=== PATIENT | female | born 1995 | race Caucasian/White ===

== ENCOUNTER 2023-02-24 11:35 | Outpatient (OUT) | payer OTHER, SELFPAY ==
[2023-02-24 12:47] LABS: Thyroid Stimulating Hormone 1.639 uIU/mL (0.358-3.740)
== END 2023-02-24 11:36 | disposition home or self-care (01) ==
PROVIDERS: PCP Family Medicine
DX: R53.83 Other fatigue (principal)
CPT/HCPCS: 36415; 82607; 84443

== ENCOUNTER 2023-05-04 19:15 | Outpatient (REF) | payer OTHER, SELFPAY | END 2023-05-04 19:16 | disposition home or self-care (01) | LOC: LAB 19:15 | PROVIDERS: PCP Family Medicine; Visit Provider Obstetrics & Gynecology | DX: R30.0 Dysuria (principal) | CPT/HCPCS: 87086; 87150; 87186 ==

== ENCOUNTER 2023-05-04 20:18 | Outpatient (REF) | payer OTHER, SELFPAY ==
[2023-05-10 07:08] LABS: Age Gdln ACOG Testing Note (.); IGP, rfx Aptima HPV ASCU Note (.)
== END 2023-05-04 20:19 | disposition home or self-care (01) ==
LOC: LAB 20:18
PROVIDERS: PCP Family Medicine; Visit Provider Physician Assistant
DX: Z01.419 Encounter for gynecological examination (general) (routine) without abnormal findings (principal); R30.0 Dysuria
CPT/HCPCS: 87086; 87150; 87186; G0145

== ENCOUNTER 2023-12-06 14:08 | Outpatient (OUT) | payer OTHER, SELFPAY | END 2023-12-06 14:09 | disposition home or self-care (01) | LOC: LAB 14:09 | PROVIDERS: PCP Family Medicine; Visit Provider Psychiatry & Neurology Psychiatry | DX: F98.8 Other specified behavioral and emotional disorders with onset usually occurring in childhood and adolescence (principal); Z79.899 Other long term (current) drug therapy | CPT/HCPCS: 36415; 80307 ==

== ENCOUNTER 2024-05-09 19:35 | Outpatient (REF) | payer OTHER, SELFPAY ==
--- OUTSIDE RECORDS SUMMARY | 2024-05-09 19:39 | XMS_ITS | CCD ---
Author Organization [facility] Care Team Providers Care Contracting Executive Name Role Phone DR SAVANNA SPEARS Primary Care Unavailable KARMANPREETK, DR MONTES Admitting Unavailable KARASIK, DR MONTES Attending Unavailable KARASIK, DR MONTES Consulting Unavailable MARKER, DR JOSE Consulting Unavailable AGUBOSIM, DUC Consulting Unavailable LONG, MINOR Consulting Unavailable AHDOOT, OPAL Consulting Unavailable DOYLE, DANYELL Consulting Unavailable TORO, EMMA Consulting Unavailable DENNIS, DR RICH Admitting Unavailable TORY, DR CORRALES Primary Care Unavailable DENNIS, DR RICH Attending Unavailable DENNIS, DR RICH Consulting Unavailable JAVAN BORGES Attending Unavailable JAVAN BORGES Consulting Unavailable TORY, DR CORRALES Primary Care Unavailable JAVAN BORGES Admitting Unavailable Dl Horton Attending Unavailab Dl Araiza Admitting Unavailab maryana ESPINOZA STAFF Primary Care Unavailable Allergies Allergy Classification Reported Allergen(s) Allergy Type Date of Onset Reaction(s) Facility (1 source) Amoxicillin Drug Allergy [facility] Repository Problems Active Problems Problem Classification Problem Date Documented Date Episodic/Chronic Abdominal pain (3 sources) Pelvic and perineal pain; Translations: [PELVIC AND PERINEAL PAIN] Onset: 03-11-2022 Episodic Anxiety disorders (1 source) Anxiety disorder, unspecified; Translations: [ANXIETY DISORDER UNSPECIFIED] Onset: 03-17-2022 Chronic Attention-deficit, conduct, and disruptive behavior disorders (1 source) Attention-deficit hyperactivity disorder, unspecified type; Translations: [ADHD UNSPECIFIED TYPE] Onset: 03-17-2022 Chronic Immunizations and screening for infectious disease (1 source) Encounter for screening for human papillomavirus (HPV); Translations: [ENC SCREENING HUMAN PAPILLOMAVIRUS] Onset: 05-05-2022 Episodic Mood disorders (1 source) Major depressive disorder, single episode, unspecified; Translations: [ZAKIA DEPRESS D/O SINGLE EPIS UNS] Onset: 03-17-2022 Chronic Other aftercare (1 source) Other long distance operator (current) drug therapy; Translations: [OTH MCFP CURRENT DRUG THERAPY] Onset: 03-17-2022 Episodic Ovarian cyst (1 source) Unspecified ovarian cyst, right side; Translations: [UNSPECIFIED OVARIAN CYST RIGHT SIDE] Onset: 03-17-2022 Episodic Unclassified (1 source) CONTACT W/AND (SUSP) EXPOS COVID-19; Translations: [CONTACT W/AND (SUSP) EXPOS COVID-19] Onset: 03-17-2022 Past or Other Problems Problem Classification Problem Date Documented Da te Episodic/Chronic Conditions associated with dizziness or vertigo (4 sources) Dizziness and giddiness; Translations: [DIZZINESS AND GIDDINESS] Onset: 01-07-2022 Episodic Results Test Name Value Interpretation Reference Range Facility PAP ACOG PANEL 2: 21 to 29on 05-11-2022 . . [facility] Comment on above: Performed By: #### B EDSON, TSH #### [facility] [address] [place] [address] Dr. Lizzy Catalan Age Gdln ACOG Testing 21-29 [facility] Comment on above: Performed By: #### B EDSON, TSH #### [facility] [address] [place] [address] Dr. Lizzy Catalan DIAGNOSIS: Comment [facility] Comment on above: Result Comment: NEGA TIVE FOR INTRAEPITHELIAL LESION OR MALIGNANCY. THIS SPECIMEN WAS RESCREENED PART OF OUR SOFTWARE INTEGRATOR PROGRAM. Performed By: #### B EDSON, TSH #### [facility] [address] [place] [address] Dr. Lizzy Catalan Methodology: Comment [facility] Comment on above: Result Comment: This liquid based ThinPrep(R) pap test was screened with the use of an image guided system. Performed By: #### B EDSON, TSH #### [facility] [address] [place] [address] Dr. Lizzy Catalan Note: Comment [facility] Comment on above: Result Comment: The Pap smear is a screening test designed to aid in the detection of premalignant and malignant conditions of the uterine cervix. It is not a diagnostic procedure and should not be used as the sole means of detecting cervical cancer. Both false-positive and false-negative reports do occur. . Performed By: #### B MP, TSH #### [facility] [address] [place] [address] Dr. Lizzy Catalan Performed by: Comment Normal [facility] Comment on above: Result Comment: Tootie Carpenter, Criminal Legal Assistant (ASCP) Performed By: #### B MP, TSH #### [facility] [address] [place] [address] Dr. Lizzy Catalan QC reviewed by: Comment Normal [facility] Comment on above: Result Comment: Colton Snowden, Criminal Legal Assistant Performed By: #### B MP, TSH #### [facility] [address] [place] [address] Dr. Lizzy Catalan Reflex Criteria: Comment Normal [facility] Comment on above: Result Comment: The HPV DNA reflex criteria were not met with this specimen result therefore, no HPV testing was performed. . Performed By: #### B MP, TSH #### [facility] [address] [place] [address] Dr. Lizzy Catalan Specimen adequacy: Comment Normal [facility] Comment on above: Result Comment: Sati sfactory for evaluation. Endocervical and/or squamous metaplastic cells (endocervical component) are present. Performed By: #### B MP, TSH #### [facility] [address] [place] [address] Dr. Lizzy Catalan CBC AUTO DIFFon 03-12-2022 BASO # 0.0 103/ul Normal 0.0-0.1 [facility] Comment on above: Performed By: #### C BC #### [facility] [address] [place] [address] Dr. Lizzy Catalan Basophils/100 WBC (Bld) 0.3 % Normal 0.2-2.0 [facility] Comment on above: Performed By: #### C BC #### [facility] [address] [place] [address] Dr. Lizzy Catalan EO # 0.0 103/ul Normal 0.0-0.7 [facility] Comment on above: Performed By: #### C BC #### [facility] [address] [place] [address] Dr. Lizzy Catalan Eosinophils/100 WBC (Bld) 0.1 % Critically low 0.9-7.0 [facility] Comment on above: Performed By: #### C BC #### [facility] [address] [place] [address] Dr. Lizzy Catalan Erythrocyte distribution width (RBC) [Ratio] 12.8 % Normal 11.0-15.0 [facility] Comment on above: Performed By: #### C BC #### [facility] [address] [place] [address] Dr. Lizzy Catalan Hematocrit (Bld) [Volume fraction] 26.1 % Critically low 36.0-48.0 [facility] Comment on above: Performed By: #### C BC #### [facility] [address] [place] [address] Dr. Lizzy Catalan Hemoglobin (Bld) [Mass/Vol] 8.4 g/dL Critically low 12.0-16.0 [facility] Comment on above: Performed By: #### C BC #### [facility] [address] [place] [address] Dr. Lizzy Catalan IG # 0.05 10e3/ul Critically high 0.00-0.03 [facility] Comment on above: Performed By: #### C BC #### [facility] [address] [place] [address] Dr. Lizzy Catalan IG % 0.4 % Normal 0.0-0.5 [facility] Comment on above: Performed By: #### C BC #### [facility] [address] [place] [address] Dr. Lizzy Catalan LYMPH # 1.5 103/ul Normal 1.2-3.8 [facility] Comment on above: Performed By: #### C BC #### [facility] [address] [place] [address] Dr. Lizzy Catalan Lymphocytes/100 WBC (Bld) 11.4 % Critically low 20.5-60.0 [facility] Comment on above: Performed By: #### C BC #### [facility] [address] [place] [address] Dr. Lizzy Catalan MANUAL DIFF REQ NO Normal [facility] Comment on above: Performed By: #### C BC #### [facility] [address] [place] [address] Dr. Lizzy Catalan MCH (RBC) [Entitic mass] 28.7 pg Normal 26.7-34.0 [facility] Comment on above: Performed By: #### C BC #### [facility] [address] [place] [address] Dr. Lizzy Catalan MCHC (RBC) [Mass/Vol] 32.2 g/dL Normal 29.9-35.2 [facility] Comment on above: Performed By: #### C BC #### [facility] [address] [place] [address] Dr. Lizzy Catalan MCV (RBC) [Entitic vol] 89.1 fL Normal 81.0-99.0 [facility] Comment on above: Performed By: #### C BC #### [facility] [address] [place] [address] Dr. Lizzy Catalan MONO # 1.2 103/ul Critically high 0.3-0.8 [facility] Comment on above: Performed By: #### C BC #### [facility] [address] [place] [address] Dr. Lizzy Catalan Monocytes/100 WBC (Bld) 9.3 % Normal 1.7-12.0 [facility] Comment on above: Performed By: #### C BC #### [facility] [address] [place] [address] Dr. Lizzy Catalan NEUT # 10.1 103/ul Critically high 1.4-6.5 [facility] Comment on above: Performed By: #### C BC #### [facility] [address] [place] [address] Dr. Lizzy Catalan Neutrophils/100 WBC (Bld) 78.5 % Critically high 43.0-75.0 [facility] Comment on above: Performed By: #### C BC #### [facility] [address] [place] [address] Dr. Lizzy Catalan Platelet mean volume (Bld) [Entitic vol] 10.0 fL Normal 9.5-13.5 [facility] Comment on above: Performed By: #### C BC #### [facility] [address] [address] [address] Lizzy Catalan PLT 333 103/ul Normal 150-450 [facility] Comment on above: Performed By: #### C BC #### [facility] [address] [place] [address] Dr. Lizzy Catalan RBC 2.93 106/ul Critically low 4.20-5.40 [facility] Comment on above: Performed By: #### C BC #### [facility] [address] [place] [address] Dr. Lizzy Catalan WBC 12.9 103/ul Critically high 4.0-11.0 [facility] Comment on above: Performed By: #### C BC #### [facility] [address] [place] [address] Dr. Lizzy Catalan CBC AUTO DIFFon 03-11-2022 BASO # 0.0 103/ul Normal 0.0-0.1 [facility] Comment on above: Performed By: #### C BC #### [facility] [address] [place] [address] Dr. Lizzy Catalan Basophils/100 WBC (Bld) 0.2 % Normal 0.2-2.0 [facility] Comment on above: Performed By: #### C BC #### [facility] [address] [place] [address] Dr. Lizzy Catalan EO # 0.0 103/ul Normal 0.0-0.7 [facility] Comment on above: Performed By: #### C BC #### [facility] [address] [place] [address] Dr. Lizzy Catalan Eosinophils/100 WBC (Bld) 0.1 % Critically low 0.9-7.0 [facility] Comment on above: Performed By: #### C BC #### [facility] [address] [place] [address] Dr. Lizzy Catalan Erythrocyte distribution width (RBC) [Ratio] 12.8 % Normal 11.0-15.0 [facility] Comment on above: Performed By: #### C BC #### [facility] [address] [place] [address] Dr. Lizzy Catalan Hematocrit (Bld) [Volume fraction] 27.3 % Critically low 36.0-48.0 [facility] Comment on above: Performed By: #### C BC #### [facility] [address] [place] [address] Dr. Lizzy Catalan Hemoglobin (Bld) [Mass/Vol] 9.2 g/dL Critically low 12.0-16.0 [facility] Comment on above: Performed By: #### C BC #### [facility] [address] [place] [address] Dr. Lizzy Catalan IG # 0.05 10e3/ul Critically high 0.00-0.03 [facility] Comment on above: Performed By: #### C BC #### [facility] [address] [place] [address] Dr. Lizzy Catalan IG % 0.4 % Normal 0.0-0.5 [facility] Comment on above: Performed By: #### C BC #### [facility] [address] [place] [address] Dr. Lizzy Catalan LYMPH # 0.5 103/ul Critically low 1.2-3.8 [facility] Comment on above: Performed By: #### C BC #### [facility] [address] [place] [address] Dr. Lizzy Catalan Lymphocytes/100 WBC (Bld) 4.2 % Critically low 20.5-60.0 [facility] Comment on above: Performed By: #### C BC #### [facility] [address] [place] [address] Dr. Lizzy Catalan MANUAL DIFF REQ NO Normal [facility] Comment on above: Performed By: #### C BC #### [facility] [address] [place] [address] Dr. Lizzy Catalan MCH (RBC) [Entitic mass] 29.4 pg Normal 26.7-34.0 [facility] Comment on above: Performed By: #### C BC #### [facility] [address] [place] [address] Dr. Lizzy Catalan MCHC (RBC) [Mass/Vol] 33.7 g/dL Normal 29.9-35.2 [facility] Comment on above: Performed By: #### C BC #### [facility] [address] [place] [address] Dr. Lizzy Catalan MCV (RBC) [Entitic vol] 87.2 fL Normal 81.0-99.0 [facility] Comment on above: Performed By: #### C BC #### [facility] [address] [place] [address] Dr. Lizzy Catalan MONO # 0.3 103/ul Normal 0.3-0.8 [facility] Comment on above: Performed By: #### C BC #### [facility] [address] [place] [address] Dr. Lizzy Catalan Monocytes/100 WBC (Bld) 2.5 % Normal 1.7-12.0 [facility] Comment on above: Performed By: #### C BC #### [facility] [address] [place] [address] Dr. Lizzy Catalan NEUT # 11.5 103/ul Critically high 1.4-6.5 [facility] Comment on above: Performed By: #### C BC #### [facility] [address] [place] [address] Dr. Lizzy Catalan Neutrophils/100 WBC (Bld) 92.6 % Critically high 43.0-75.0 [facility] Comment on above: Performed By: #### C BC #### [facility] [address] [place] [address] Dr. Lizzy Catalan Platelet mean volume (Bld) [Entitic vol] 10.0 fL Normal 9.5-13.5 [facility] Comment on above: Performed By: #### C BC #### [facility] [address] [address] [address] Lizzy Catalan PLT 329 103/ul Normal 150-450 [facility] Comment on above: Performed By: #### C BC #### [facility] [address] [address] [address] Lizzy Catalan RBC 3.13 106/ul Critically low 4.20-5.40 [facility] Comment on above: Performed By: #### C BC #### [facility] [address] [address] [address] Lizzy Catalan WBC 12.4 103/ul Critically high 4.0-11.0 [facility] Comment on above: Performed By: #### C BC #### [facility] [address] [place] [address] Dr. Lizzy Catalan BASO # 0.1 103/ul Normal 0.0-0.1 [facility] Comment on above: Performed By: #### C BC #### [facility] [address] [place] [address] Dr. Lizzy Catalan Basophils/100 WBC (Bld) 0.7 % Normal 0.2-2.0 [facility] Comment on above: Performed By: #### C BC #### [facility] [address] [place] [address] Dr. Lizzy Catalan EO # 0.0 103/ul Normal 0.0-0.7 [facility] Comment on above: Performed By: #### C BC #### [facility] [address] [place] [address] Dr. Lizzy Catalan Eosinophils/100 WBC (Bld) 0.3 % Critically low 0.9-7.0 [facility] Comment on above: Performed By: #### C BC #### [facility] [address] [place] [address] Dr. Lizzy Catalan Erythrocyte distribution width (RBC) [Ratio] 12.5 % Normal 11.0-15.0 [facility] Comment on above: Performed By: #### C BC #### [facility] [address] [place] [address] Dr. Lizzy Catalan Hematocrit (Bld) [Volume fraction] 26.7 % Critically low 36.0-48.0 [facility] Comment on above: Performed By: #### C BC #### [facility] [address] [place] [address] Dr. Lizzy Catalan Hemoglobin (Bld) [Mass/Vol] 8.9 g/dL Critically low 12.0-16.0 [facility] Comment on above: Performed By: #### C BC #### [facility] [address] [place] [address] Dr. Lizzy Catalan IG # 0.05 10e3/ul Critically high 0.00-0.03 [facility] Comment on above: Performed By: #### C BC #### [facility] [address] [place] [address] Dr. Lizzy Catalan IG % 0.5 % Normal 0.0-0.5 [facility] Comment on above: Performed By: #### C BC #### [facility] [address] [place] [address] Dr. Lizzy Catalan LYMPH # 2.0 103/ul Normal 1.2-3.8 [facility] Comment on above: Performed By: #### C BC #### [facility] [address] [place] [address] Dr. Lizzy Catalan Lymphocytes/100 WBC (Bld) 19.2 % Critically low 20.5-60.0 [facility] Comment on above: Performed By: #### C BC #### [facility] [address] [place] [address] Dr. Lizzy Catalan MANUAL DIFF REQ NO Normal [facility] Comment on above: Performed By: #### C BC #### [facility] [address] [place] [address] Dr. Lizzy Catalan MCH (RBC) [Entitic mass] 28.7 pg Normal 26.7-34.0 [facility] Comment on above: Performed By: #### C BC #### [facility] [address] [place] [address] Dr. Lizzy Catalan MCHC (RBC) [Mass/Vol] 33.3 g/dL Normal 29.9-35.2 [facility] Comment on above: Performed By: #### C BC #### [facility] [address] [place] [address] Dr. Lizzy Catalan MCV (RBC) [Entitic vol] 86.1 fL Normal 81.0-99.0 [facility] Comment on above: Performed By: #### C BC #### [facility] [address] [place] [address] Dr. Lizzy Catalan MONO # 1.0 103/ul Critically high 0.3-0.8 [facility] Comment on above: Performed By: #### C BC #### [facility] [address] [place] [address] Dr. Lizzy Catalan Monocytes/100 WBC (Bld) 9.6 % Normal 1.7-12.0 [facility] Comment on above: Performed By: #### C BC #### [facility] [address] [place] [address] Dr. Lizzy Catalan NEUT # 7.4 103/ul Critically high 1.4-6.5 [facility] Comment on above: Performed By: #### C BC #### [facility] [address] [place] [address] Dr. Lizzy Catalan Neutrophils/100 WBC (Bld) 69.7 % Normal 43.0-75.0 [facility] Comment on above: Performed By: #### C BC #### [facility] [address] [place] [address] Dr. Lizzy Catalan Platelet mean volume (Bld) [Entitic vol] 9.8 fL Normal 9.5-13.5 [facility] Comment on above: Performed By: #### C BC #### [facility] [address] [place] [address] Dr. Lizzy Catalan PLT 308 103/ul Normal 150-450 [facility] Comment on above: Performed By: #### C BC #### [facility] [address] [place] [address] Dr. Lizzy Catalan RBC 3.10 106/ul Critically low 4.20-5.40 [facility] Comment on above: Performed By: #### C BC #### [facility] [address] [place], [place] [address] Dr. Lizzy Catalan WBC 10.6 103/ul Normal 4.0-11.0 [facility] Comment on above: Performed By: #### C BC #### [facility] [address] [place], [place] [address] ABD/PELV W CONon 03-11-20 CT ABD/PELV W CON EXAMINATION: CT ABD/PELV W CON HISTORY: GENERALIZED ABDOMINAL PAIN COMPARISON: Pelvic ultrasound dated 03/10/2022 TECHNIQUE: CT of the abdomen and pelvis with intravenous contrast Dose reduction techniques were achieved by using automated exposure control and/or adjustment of mA and/or kV according to patient size and/or use of iterative reconstruction technique. FINDINGS: TUBES AND IMPLANTS: None. LOWER CHEST: Unremarkable ABDOMEN and PELVIS ABDOMINAL WALL AND SOFT TISSUES: Unremarkable. BONES: Unremarkable ARTERIES: Unremarkable. VEINS: Unremarkable. LYMPH NODES: Unremarkable. PERITONEUM/ RETROPERITONEUM: Small to moderate hemoperitoneum. There is a large hemorrhagic focus seen within the pelvis likely associated with the left ovary measuring 6.5 by 8.4 by 8 centimeters. Additional round left adnexal focus measuring 1.8 centimeters may represent source of bleeding. Additional enlargement of the right ovary with complex cystic lesion which also demonstrates areas of hemorrhage. BOWEL: No obstruction APPENDIX: Unremarkable LIVER: Visualized portions are unremarkable GALLBLADDER: Unremarkable. BILE DUCTS: Not dilated SPLEEN: Unremarkable. PANCREAS: Unremarkable. ADRENALS: Unremarkable. KIDNEYS/ URETERS: Tiny bilateral cysts REPRODUCTIVE ORGANS: Uterus appears unremarkable. URINARY BLADDER: Unremarkable. IMPRESSION: 1. Small to moderate hemoperitoneum. 2. There is a large hemorrhagic focus seen within the pelvis likely associated with the left ovary measuring 6.5 by 8.4 by 8 centimeters. Additional round left adnexal focus measuring 1.8 centimeters may represent source of bleeding. Additional enlargement of the right ovary with complex cystic lesion which also demonstrates areas of hemorrhage. This may represent a ruptured corpus luteum cyst or hemorrhagic cyst. Left ovarian torsion is a secondary consideration. At time of dictation clinical operations staff was directly to relay the above findings to the ordering clinician. Electronically authenticated by: EMMA TORO Date: 2022-03-11 00:41 Normal [facility] Covid-19 PCR (CVDTB)on SARS-CoV-2 (COVID-19) RNA LEONIDES+probe Ql (Unsp spec) Not detected Normal NOT DETECTED [facility] Comment on above: Result Comment: When diagnostic testing is negative, the possibility of a false negative should be considered in the context of a patient's recent exposures and the presence of clinical signs and symptoms consistent with SARS-CoV-2. This test is not yet approved or cleared by the [place] FDA. When there are no FDA-approved or cleared tests available, and other criteria are met, FDA can make tests available under an emergency access mechanism called an Emergency Use Authorization (EUA). The EUA for this test is supported by the [place] of Health and Human Service's declaration that circumstances exist to justify the emergency use of in vitro diagnostics for the detection and/or diagnosis of the virus that causes COVID-19. This EUA will remain in effect for the duration of the COVID-19 declaration justifying emergency of IVDs, unless it is terminated or revoked by the FDA (after which the test may no longer be used). Performed By: #### B MP, TSH #### [facility] [address] [place] [address] Dr. Lizzy Catalan ER URINE PROFILEon 2 Bilirubin Ql (U) SMALL Abnormal NEGATIVE [facility] Comment on above: Performed By: #### U MICRO, ERUR, PREGU #### [facility] [address] [place] [address] Dr. Lizzy Catalan Clarity (U) CLEAR Normal CLEAR [facility] Comment on above: Performed By: #### U MICRO, ERUR, PREGU #### [facility] [address] [place] [address] Dr. Lizzy Catalan Color (U) DK. YELLOW Normal YELLOW [facility] Comment on above: Performed By: #### U MICRO, ERUR, PREGU #### [facility] [address] [place] [address] Dr. Lizzy Catalan ERUAHD A micrscopic examination will be performed if indicated. Normal [facility] Comment on above: Performed By: #### U MICRO, ERUR, PREGU #### [facility] [address] [address] [address] Lizzy Catalan Glucose Ql (U) Negative Normal NEGATIVE The [facility] Comment on above: Performed By: #### U MICRO, ERUR, PREGU #### [facility] [address] [address] [address] Lizzy Catalan Hemoglobin Ql (U) MODERATE Abnormal NEGATIVE [facility] Comment on above: Performed By: #### U MICRO, ERUR, PREGU #### [facility] [address] [address] [address] Lizzy Catalan Ketones Ql (U) Negative Normal NEGATIVE The [facility] Comment on above: Performed By: #### U MICRO, ERUR, PREGU #### [facility] [address] [address] [address] Lizzy Catalan LEUKOCYTES Negative Normal NEGATIVE [facility] Comment on above: Performed By: #### U MICRO, ERUR, PREGU #### [facility] [address] [address] [address] Lizzy Catalan Nitrite Ql (U) Negative Normal NEGATIVE [facility] Comment on above: Performed By: #### U MICRO, ERUR, PREGU #### [facility] [address] [address] [address] Lizzy Catalan pH (U) 5.0 [pH] Normal 5-9 [facility] Comment on above: Performed By: #### U MICRO, ERUR, PREGU #### [facility] [address] [address] [address] Lizzy Catalan SPEC GRAVITY >=1.030 Abnormal 1.005-<=1.025 [facility] Comment on above: Performed By: #### U MICRO, ERUR, PREGU #### [facility] [address] [address] [address] Lizzy Catalan UA PROTEIN TRACE Normal NEGATIVE/ TRACE [facility] Comment on above: Performed By: #### U MICRO, ERUR, PREGU #### [facility] [address] [place] [address] Dr. Lizzy Catalan UR MICRO IND INDICATED Normal [facility] Comment on above: Performed By: #### U MICRO, ERUR, PREGU #### [facility] [address] [place] [address] Dr. Lizzy Catalan Urobilinogen Qn (U) 0.2 {David'U}/dL Normal 0.2 - 1.0 [facility] Comment on above: Performed By: #### U MICRO, ERUR, PREGU #### [facility] [address] [place] [address] Dr. Lizzy Catalan URon 03-11-2022 , QUAL Negative Normal NEGATIVE [facility] Comment on above: Performed By: #### U MICRO, ERUR, PREGU #### [facility] [address] [place] [address] Dr. Lizzy Catalan URINE MICROSCOPIC ONLYon BACTERIA TRACE Abnormal NONE SEEN [facility] Comment on above: Performed By: #### B MP, TSH #### [facility] [address] [place] [address] Dr. Lizzy Catalan Bacteria identified Cx Nom (U) NOT INDICATED Normal [facility] Comment on above: Performed By: #### B MP, TSH #### [facility] [address] [place] [address] Dr. Lizzy Catalan CAST NONE SEEN Normal NONE SEEN [facility] Comment on above: Performed By: #### B MP, TSH #### [facility] [address] [place] [address] Dr. Lizzy Catalan Crystals LM Nom (Urine sed) NONE SEEN Normal NONE SEEN [facility] Comment on above: Performed By: #### B MP, TSH #### [facility] [address] [place] [address] Dr. Lizzy Catalan Epithelial cells LM Ql (Urine sed) FEW Abnormal NONE SEEN /RARE [facility] Comment on above: Performed By: #### B MP, TSH #### [facility] [address] [place] [address] Dr. Lizzy Catalan MUCOUS NONE SEEN Normal NONE SEEN [facility] Comment on above: Performed By: #### B MP, TSH #### [facility] [address] [place], [place] [address] Dr. Lizzy Catalan RBC 5-10 Abnormal 0-2 [facility] Comment on above: Performed By: #### B MP, TSH #### [facility] [address] [place], [place] [address] Dr. Lizzy Catalan WBC 2-5 Abnormal NONE SEEN [facility] Comment on above: Performed By: #### B MP, TSH #### [facility] [address] [place], [place] [address] Dr. Lizzy Catalan US PELVISon 03-11-2022 US PELVIS EXAM: US PELVIS REASON FOR EXAM: Female, 26 years, Torsion of ovary. LMP: 02/24/2022 TECHNIQUE: A transabdominal pelvic ultrasound was performed. The patient refused transvaginal scanning. The study is limited. The bladder was empty at the time of scanning. Both intravenous and oral fluids were given for one hour, without significant bladder filling. COMPARISON: None. FINDINGS: The uterus measures 7 x 4.5 x 3.6 cm. The uterus appears small for patient age. The endometrial stripe measures 3 mm. The cervix is normal. Right ovary: The right ovary measures 6.6 x 8.3 x 6.7 cm. cm. There is a complex cystic lesion within the right ovary, which measures approximately 5.6 x 4.2 x 5 cm. There is some vascularity documented in the periphery of the right ovary. Left ovary: The left ovary was not visualized. The bladder is empty at the time of scanning. There is no free fluid in the cul de sac. IMPRESSION: The study is limited. Despite both oral and intravenous fluids, the bladder was not distended for the transabdominal exam. The patient refused transvaginal scanning. The uterus appears small for patient age. Complex cystic structure in the right adnexa, suggesting a hemorrhagic right ovarian cyst. This patient may benefit from repeat pelvic sonography in the morning, with a full urinary bladder. Transvaginal scanning would also be very beneficial. 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 Electronically authenticated by: DANYELL KWON Date: 2022-03-10 22:59 Normal [facility] XR ABD FLAT UP_PA Magdaleno 03-11 XR ABD FLAT UP_PA CH EXAM: XR ABD FLAT UP_PA CH HISTORY: Constipation COMPARISON: None. TECHNIQUE: Frontal view of the chest as well as upright and supine views of the abdomen FINDINGS: The heart size is normal. No dense focal consolidation, pneumothorax or pleural effusion is seen. Nonspecific bowel gas pattern is seen. No air-filled distended loops of bowel is seen to suggest bowel obstruction. Air-fluid levels are seen within the ascending colon, suggestive of diarrheal state. Large volume of stool is seen in the colon. No gross pneumoperitoneum is seen. No pathologic calcification is seen. The visualized osseous structures appear unremarkable. IMPRESSION: Large volume of stool is seen in the colon. Air-fluid levels are seen in the ascending colon, suggestive of diarrheal state. Electronically authenticated by: OPAL DELA CRUZ Date: 2022-03-10 23:09 Normal [facility] CBC AUTO DIFFon 03-10-2022 BASO # 0.1 103/ul Normal 0.0-0.1 [facility] Comment on above: Performed By: #### B EDSON, TSH #### [facility] [address] [address] [address] Lizzy Catalan Basophils/100 WBC (Bld) 0.9 % Normal 0.2-2.0 [facility] Comment on above: Performed By: #### B EDSON, TSH #### [facility] [address] [address] [address] Lizzy Catalan EO # 0.1 103/ul Normal 0.0-0.7 [facility] Comment on above: Performed By: #### B EDSON, TSH #### [facility] [address] [address] [address] Lizzy Catalan Eosinophils/100 WBC (Bld) 1.1 % Normal 0.9-7.0 [facility] Comment on above: Performed By: #### B EDSON, TSH #### [facility] [address] [place] [address] Dr. Lizzy Catalan Erythrocyte distribution width (RBC) [Ratio] 12.4 % Normal 11.0-15.0 [facility] Comment on above: Performed By: #### B MP, TSH #### [facility] [address] [place] [address] Dr. Lizzy Catalan Hematocrit (Bld) [Volume fraction] 34.1 % Critically low 36.0-48.0 [facility] Comment on above: Performed By: #### B MP, TSH #### [facility] [address] [place] [address] Dr. Lizzy Catlaan Hemoglobin (Bld) [Mass/Vol] 11.5 g/dL Critically low 12.0-16.0 [facility] Comment on above: Performed By: #### B MP, TSH #### [facility] [address] [place] [address] Dr. Lizzy Catalan IG # 0.02 10e3/ul Normal 0.00-0.03 [facility] Comment on above: Performed By: #### B MP, TSH #### [facility] [address] [place] [address] Dr. Lizzy Catalan IG % 0.2 % Normal 0.0-0.5 [facility] Comment on above: Performed By: #### B MP, TSH #### [facility] [address] [place] [address] Dr. Lizzy Catalan LYMPH # 3.4 103/ul Normal 1.2-3.8 [facility] Comment on above: Performed By: #### B MP, TSH #### [facility] [address] [place] [address] Dr. Lizzy Catalan Lymphocytes/100 WBC (Bld) 33.0 % Normal 20.5-60.0 [facility] Comment on above: Performed By: #### B MP, TSH #### [facility] [address] [place] [address] Dr. Lizzy Catalan MANUAL DIFF REQ NO Normal [facility] Comment on above: Performed By: #### B MP, TSH #### [facility] [address] [place] [address] Dr. Lizzy Catalan MCH (RBC) [Entitic mass] 28.8 pg Normal 26.7-34.0 [facility] Comment on above: Performed By: #### B MP, TSH #### [facility] [address] [address] [address] Lizzy Catalan MCHC (RBC) [Mass/Vol] 33.7 g/dL Normal 29.9-35.2 [facility] Comment on above: Performed By: #### B MP, TSH #### [facility] [address] [address] [address] Lizzy Catalan MCV (RBC) [Entitic vol] 85.3 fL Normal 81.0-99.0 [facility] Comment on above: Performed By: #### B MP, TSH #### [facility] [address] [address] [address] Lizzy Catalan MONO # 1.0 103/ul Critically high 0.3-0.8 [facility] Comment on above: Performed By: #### B MP, TSH #### [facility] [address] [address] [address] Lizzy Catalan Monocytes/100 WBC (Bld) 9.9 % Normal 1.7-12.0 [facility] Comment on above: Performed By: #### B MP, TSH #### [facility] [address] [address] [address] Lizzy Catalan NEUT # 5.6 103/ul Normal 1.4-6.5 [facility] Comment on above: Performed By: #### B MP, TSH #### [facility] [address] [address] [address] Lizzy Catalan Neutrophils/100 WBC (Bld) 54.9 % Normal 43.0-75.0 [facility] Comment on above: Performed By: #### B MP, TSH #### [facility] [address] [address] [address] Lizzy Catalan Platelet mean volume (Bld) [Entitic vol] 9.5 fL Normal 9.5-13.5 [facility] Comment on above: Performed By: #### B MP, TSH #### [facility] [address] [address] [address] Lizzy Catalan PLT 483 103/ul Critically high 150-450 [facility] Comment on above: Performed By: #### B MP, TSH #### [facility] [address] [address] [address] Lizzy Catalan RBC 4.00 106/ul Critically low 4.20-5.40 [facility] Comment on above: Performed By: #### B MP, TSH #### [facility] [address] [address] [address] Lizzy Catalan WBC 10.1 103/ul Normal 4.0-11.0 [facility] Comment on above: Performed By: #### B MP, TSH #### [facility] [address] [address] [address] Lizzy Catalan PROF 14(COMP METB)on 022 Albumin [Mass/Vol] 3.7 g/dL Normal 3.4-5.0 [facility] Comment on above: Performed By: #### C MP #### [facility] [address] [place] [address] Dr. Lizzy Catalan Albumin/Globulin [Mass ratio] 1.1 {ratio} Normal [facility] Comment on above: Performed By: #### C MP #### [facility] [address] [place] [address] Dr. Lizzy Catalan ALP [Catalytic activity/Vol] 76 U/L Normal 46-116 [facility] Comment on above: Performed By: #### C MP #### [facility] [address] [address] [address] Lizzy Catalan ALT [Catalytic activity/Vol] 17 U/L Normal 14-59 [facility] Comment on above: Performed By: #### C MP #### [facility] [address] [address] [address] Lizzy Catalan Anion gap [Moles/Vol] 11.6 mmol/L Normal [facility] Comment on above: Performed By: #### C MP #### [facility] [address] [place] [address] Dr. Lizzy Catalan AST [Catalytic activity/Vol] 14 U/L Critically low 15-37 [facility] Comment on above: Performed By: #### C MP #### [facility] [address] [address] [address] Lizzy Catalan Bilirubin [Mass/Vol] 0.5 mg/dL Normal 0.2-1.0 [facility] Comment on above: Performed By: #### C MP #### [facility] [address] [address] [address] Lizzy Catalan Calcium [Mass/Vol] 8.7 mg/dL Normal 8.5-10.1 [facility] Comment on above: Performed By: #### C MP #### [facility] [address] [address] [address] Lizzy Catalan Chloride [Moles/Vol] 104 mmol/L Normal 98-107 [facility] Comment on above: Performed By: #### C MP #### [facility] [address] [place] [address] Dr. Lizzy Catalan CO2 [Moles/Vol] 28.2 mmol/L Normal 21.0-32.0 [facility] Comment on above: Performed By: #### C MP #### [facility] [address] [address] [address] Lizzy Catalan Creatinine [Mass/Vol] 0.80 mg/dL Normal 0.55-1.02 [facility] Comment on above: Performed By: #### C MP #### [facility] [address] [address] [address] Lizzy Catalan EGFR-AF BRAZILIAN >60 Normal >=60 [facility] Comment on above: Performed By: #### C MP #### [facility] [address] [address] [address] Lizzy Catalan EGFR-NON AF BRAZILIAN >60 Normal >=60 [facility] Comment on above: Performed By: #### C MP #### [facility] [address] [place] [address] Dr. Lizzy Catalan Globulin (S) [Mass/Vol] 3.3 g/dL Normal [facility] Comment on above: Performed By: #### C MP #### [facility] [address] [address] [address] Lizzy Catalan Glucose [Mass/Vol] 139 mg/dL Critically high 74-106 [facility] Comment on above: Performed By: #### C MP #### [facility] [address] [address] [address] Lizzy Catalan Potassium [Moles/Vol] 3.8 mmol/L Normal 3.5-5.1 [facility] Comment on above: Performed By: #### C MP #### [facility] [address] [address] [address] Lizzy Catalan Protein [Mass/Vol] 7.0 g/dL Normal 6.4-8.2 [facility] Comment on above: Performed By: #### C MP #### [facility] [address] [place] [address] Dr. Lizzy Catalan Sodium [Moles/Vol] 140 mmol/L Normal 136-145 [facility] Comment on above: Performed By: #### C MP #### [facility] [address] [place] [address] Dr. Lizzy Catalan Urea nitrogen [Mass/Vol] 12.0 mg/dL Normal 7.0-18.0 [facility] Comment on above: Performed By: #### C MP #### [facility] [address] [place] [address] Dr. Lizzy Catalan Urea nitrogen/Creatini ne [Mass ratio] 15.0 mg/mg Normal [facility] Comment on above: Performed By: #### C MP #### [facility] [address] [address] [address] Lizzy Catalan CBC AUTO DIFFon 01-07-2022 BASO # 0.1 103/ul Normal 0.0-0.1 [facility] Comment on above: Performed By: #### B MP, TSH #### [facility] [address] [address] [address] Lizzy Catalan Basophils/100 WBC (Bld) 1.2 % Normal 0.2-2.0 [facility] Comment on above: Performed By: #### B MP, TSH #### [facility] [address] [place] [address] Dr. Lizzy Catalan EO # 0.1 103/ul Normal 0.0-0.7 [facility] Comment on above: Performed By: #### B MP, TSH #### [facility] [address] [place] [address] Dr. Lizzy Catalan Eosinophils/100 WBC (Bld) 0.7 % Critically low 0.9-7.0 [facility] Comment on above: Performed By: #### B MP, TSH #### [facility] [address] [place] [address] Dr. Lizzy Catalan Erythrocyte distribution width (RBC) [Ratio] 12.4 % Normal 11.0-15.0 [facility] Comment on above: Performed By: #### B EDSON, TSH #### [facility] [address] [place] [address] Dr. Lizzy Catalan Hematocrit (Bld) [Volume fraction] 43.3 % Normal 36.0-48.0 [facility] Comment on above: Performed By: #### B EDSON, TSH #### [facility] [address] [place] [address] Dr. Lizzy Catalan Hemoglobin (Bld) [Mass/Vol] 14.3 g/dL Normal 12.0-16.0 [facility] Comment on above: Performed By: #### B EDSON, TSH #### [facility] [address] [place] [address] Dr. Lizzy Catalan IG # 0.02 10e3/ul Normal 0.00-0.03 [facility] Comment on above: Performed By: #### B MP, TSH #### [facility] [address] [place] [address] Dr. Lizzy Catalan IG % 0.2 % Normal 0.0-0.5 [facility] Comment on above: Performed By: #### B MP, TSH #### [facility] [address] [place] [address] Dr. Lizzy Catalan LYMPH # 2.4 103/ul Normal 1.2-3.8 [facility] Comment on above: Performed By: #### B EDSON, TSH #### [facility] [address] [place] [address] Dr. Lizzy Catalan Lymphocytes/100 WBC (Bld) 29.6 % Normal 20.5-60.0 [facility] Comment on above: Performed By: #### B MP, TSH #### [facility] [address] [place] [address] Dr. Lizzy Catalan MANUAL DIFF REQ NO Normal [facility] Comment on above: Performed By: #### B MP, TSH #### [facility] [address] [place] [address] Dr. Lizzy Catalan MCH (RBC) [Entitic mass] 29.2 pg Normal 26.7-34.0 [facility] Comment on above: Performed By: #### B MP, TSH #### [facility] [address] [place] [address] Dr. Lizzy Catalan MCHC (RBC) [Mass/Vol] 33.0 g/dL Normal 29.9-35.2 [facility] Comment on above: Performed By: #### B MP, TSH #### [facility] [address] [place] [address] Dr. Lizzy Catalan MCV (RBC) [Entitic vol] 88.5 fL Normal 81.0-99.0 [facility] Comment on above: Performed By: #### B MP, TSH #### [facility] [address] [place] [address] Dr. Lizzy Catalan MONO # 1.1 103/ul Critically high 0.3-0.8 [facility] Comment on above: Performed By: #### B MP, TSH #### [facility] [address] [place] [address] Dr. Lizzy Catalan Monocytes/100 WBC (Bld) 13.2 % Critically high 1.7-12.0 [facility] Comment on above: Performed By: #### B MP, TSH #### [facility] [address] [place] [address] Dr. Lizzy Catalan NEUT # 4.5 103/ul Normal 1.4-6.5 [facility] Comment on above: Performed By: #### B MP, TSH #### [facility] [address] [address] [address] Lizzy Catalan Neutrophils/100 WBC (Bld) 55.1 % Normal 43.0-75.0 [facility] Comment on above: Performed By: #### B MP, TSH #### [facility] [address] [address] [address] Lizzy Catalan Platelet mean volume (Bld) [Entitic vol] 9.6 fL Normal 9.5-13.5 [facility] Comment on above: Performed By: #### B MP, TSH #### [facility] [address] [address] [address] Lizzy Catalan PLT 443 103/ul Normal 150-450 [facility] Comment on above: Performed By: #### B MP, TSH #### [facility] [address] [place] [address] Dr. Lizzy Catalan RBC 4.89 106/ul Normal 4.20-5.40 [facility] Comment on above: Performed By: #### B MP, TSH #### [facility] [address] [place] [address] Dr. Lizzy Catalan WBC 8.1 103/ul Normal 4.0-11.0 [facility] Comment on above: Performed By: #### B MP, TSH #### [facility] [address] [place] [address] Dr. Lizzy Catalan PROF CHEM 8 (BAS METB)on Anion gap [Moles/Vol] 12.5 mmol/L Normal [facility] Comment on above: Performed By: #### B MP, TSH #### [facility] [address] [place] [address] Dr. Lizzy Catalan Calcium [Mass/Vol] 9.4 mg/dL Normal 8.5-10.1 [facility] Comment on above: Performed By: #### B MP, TSH #### [facility] [address] [place] [address] Dr. Lizzy Catalan Chloride [Moles/Vol] 102 mmol/L Normal 98-107 [facility] Comment on above: Performed By: #### B MP, TSH #### [facility] [address] [address] [address] Lizzy Catalan CO2 [Moles/Vol] 28.9 mmol/L Normal 21.0-32.0 [facility] Comment on above: Performed By: #### B MP, TSH #### [facility] [address] [address] [address] Lizzy Catalan Creatinine [Mass/Vol] 0.85 mg/dL Normal 0.55-1.02 [facility] Comment on above: Performed By: #### B MP, TSH #### [facility] [address] [address] [address] Lizzy Catalan EGFR-AF BRAZILIAN >60 Normal >=60 [facility] Comment on above: Performed By: #### B MP, TSH #### [facility] [address] [address] [address] Lizzy Catalan EGFR-NON AF BRAZILIAN >60 Normal >=60 [facility] Comment on above: Performed By: #### B MP, TSH #### [facility] [address] [address] [address] Lizzy Catalan Glucose [Mass/Vol] 97 mg/dL Normal 74-106 [facility] Comment on above: Performed By: #### B MP, TSH #### [facility] [address] [address] [address] Lizzy Catalan Potassium [Moles/Vol] 4.4 mmol/L Normal 3.5-5.1 [facility] Comment on above: Performed By: #### B MP, TSH #### [facility] [address] [address] [address] Lizzy Catalan Sodium [Moles/Vol] 139 mmol/L Normal 136-145 [facility] Comment on above: Performed By: #### B MP, TSH #### [facility] [address] [address] [address] Lizzy Catalan Urea nitrogen [Mass/Vol] 10.0 mg/dL Normal 7.0-18.0 [facility] Comment on above: Performed By: #### B MP, TSH #### [facility] [address] [address] [address] Lizzy Catalan Urea nitrogen/Creatini ne [Mass ratio] 11.8 mg/mg Normal [facility] Comment on above: Performed By: #### B MP, TSH #### [facility] [address] [address] [address] Lizzy Catalan TSHon 01-07-2022 TSH 2.753 uIU/mL Normal 0.358-3.740 [facility] Comment on above: Performed By: #### B MP, TSH #### [facility] [address] [address] [address] Lizzy Catalan TSH RANGE SEE BELOW Normal [facility] Comment on above: Result Comment: <0.3 4 UIU/ml HYPERTHYROID 0.34-5.60 UIU/ml EUTHYROID >5.60 UIU/ml HYPOTHYROID Performed By: #### B MP, TSH #### [facility] [address] [address] [address] Lizzy Catalan Rehab Psych Evaluationon Rehab Psych Evaluation MR#: [id number] REHABILITATION SERVICES ( ) INPATIENT (x) OUTPATIENT Patient Name: Shirley Khalil Date of : 1995 Referring Physician: Darinel Danielson MD Dictated By: Sriram Starr, PhD Evaluation Date: 04/08/2021 neuropsychological evaluation DATES OF SERVICE: 04/08/2021-04/20/2021 DIAGNOSIS: Other amnesia DATE OF ONSET: Unknown DATE OF : 1995 AGE: 25 years TIME SPENT: 32309=7 unit; 11435=6 unit; 95523=9 units; 87655=8 unit; 40900=1 units REASON FOR REFERRAL: This is the initial neuropsychological evaluation of Ms. Shirley Khalil, a 25-year-old, right-handed, White, young lady, who was referred for this evaluation to determine present cognitive functioning in the context of self-reported long-standing difficulties with cognitive functioning including short-term recall. She is referred with other amnesia. HISTORY OF PRESENTING PROBLEM: Ms. Khalil presents to the current evaluation on time and unaccompanied; she is believed to be an accurate historian. Additionally, a clinic note from Dr. Darinel Danielson dated 05/14/2020 was also consulted. According to Dr. Danielson's clinic note, Ms. Khalil was seen in the context of memory difficulties and difficulty with word retrieval. It was also noted that she had been having difficulties with dizziness and headache, as well as notable psychosocial stressors/anxiety. Dr. Danielson's clinic note indicates normal mental status including intact orientation, attention, language, and memory abilities. Dr. Danielson concluded memory difficulties that he believed were likely related to stress and anxiety. Dr. Danielson also indicates an MRI of the brain from 04/01/2020 that noted mild scattered white matter abnormalities that was nonspecific. He also notes an EEG from 09/16/2019 that was read as normal. Presently, Ms. Khalil notes long-standing memory difficulties and notes she is not functioning as she should be. She does indicate that she had recently quit her job due to substantial stress and panic attacks. She notes that memory difficulties have been present for many years. She indicates recently going on medications to address stress and anxiety that have been beneficial. 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 CURRENT MEDICATIONS: Ms. Khalil indicates Adderall, Cymbalta, buspirone, and trazodone. PAST MEDICAL HISTORY: Ms. Khalil indicates no substantial medical history, but does note anemia as a child. She adds no instances of seizure activity and notes developmental history was generally normal, although she does indicate that her development of speech was delayed; she adds no speech therapy. PAST SURGICAL HISTORY: Ms. Khalil indicates wisdom teeth extraction. PSYCHIATRIC HISTORY: Ms. Khalil indicates longstanding anxiety and depression diagnosed originally in her teenage years. She adds no previous psychological testing. She does indicate she receives medication management once every three months at [facility] and also sees a counselor once every three months. She adds no instances of thoughts of self-harm or past suicide attempts. SUBSTANCE USE: Ms. Khalil indicates no current alcohol use and no history of heavy alcohol consumption. She adds no current illicit substance or tobacco use. FAMILY MEDICAL HISTORY: Ms. Khalil indicates her mother has high blood pressure and her father has cardiac issues. She also notes that a sister has mental health issues. SOCIAL HISTORY: Ms. Khalil indicates she was born near [place] and presently resides in [place], [place], with her mother and father. She adds no children. EDUCATIONAL HISTORY: Ms. Khalil indicates she graduated from high school and notes no additional schooling. She notes she attained average grades, but struggled with Malagasy-related classes. She adds no history of special education or grade retention. She is credited with 12 years of education. VOCATIONAL HISTORY: Ms. 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 CURRENT FUNCTIONING: Behavioral: Ms. Khalil indicates her sleep is generally adequate, although she does note difficulties with sleep onset due to frequent mind racing. She does note that she feels tired most of the day. With regard to interests and hobbies, she notes she enjoys playing video games and reading as well as drawing. She does note that she is easily distractible when reading. Emotional: When asked to describe current mood, she notes it's a lot. She notes she is typically in between happiness and sadness. She does however indicate that she does experience (more content not included)... Normal [facility] Encounters Encounter Date Encounter Type Care Provider Facility Start: 05-01-2024 ambulatory Dl Arana acility:[facility] Start: 05-05-2022 Encounter for cervic al smear to confirm findings of recent normal smear following initial abnormal smear DR HILARIO COLLINS [facility] Start: 05-03-2022 End: 05-03-[address] HILARIO COLLINS Facility:[facility] Start: 05-03-2022 End: 05-03-2022 Encounter for cervical smear to confirm findings of recent normal smear following initial abnormal smear DR HILARIO COLLINS Facility:[facility] Start: 03-11-2022 End: 03-12-[address] SAVANNA SPEARS Facility:[facility] Start: 01-07-2022 End: 01-08-2022 ambulatory JAVAN BORGES Facility:[facility] Payers Date Payer Category Payer Self-pay 1995 Unknown [id number] 1995 Unknown [id number] 1995 Unknown [id number] 1960 Unknown [id number] Summary Purpose Family History No Family History Records FoundNo Family History Records FoundNo Family History Records Found Advance Directives No Advanced Directives Records FoundNo Advanced Directives Records FoundNo Advanced Directives Records Found Additional Source Comments INFORMATION SOURCE (unrecogn ized section and content) DATE CREATED AUTHOR 10/29/2021 [facility] DATE CREATED AUTHOR AUTHOR'S ORGANIZ ATION 05/12/2022 [facility] DATE CREATED AUTHOR AUTHOR'S ORGANIZ ATION 05/04/2024 [facility] FOR RECORDS PERTAINING TO PATIENTS WHO ARE OR HAVE BEEN ENROLLED IN A CHEMICAL DEPENDENCY/SUBSTANCEABUSE PROGRAM, SOME INFORMATION MAY BE OMITTED. This clinical summary was aggregated from multiple sources. Caution should be exercised in using it in the provision of clinical care. This summary normalizes information from multiple sources, and as a consequence, information in this document may materially change the coding, format and clinical context of patient data. In addition, data may be omitted in some cases. CLINICAL DECISIONS SHOULD BE BASED ON THE PRIMARY CLINICAL RECORDS. [facility] [employer] [facility]. provides no warranty or guarantee of the accuracy or completeness of information in this document.
[2024-05-17 16:10] LABS: Age Gdln ACOG Testing Note (.); IGP, rfx Aptima HPV ASCU Note (.)
== END 2024-05-09 19:36 | disposition home or self-care (01) ==
LOC: LAB 19:35
PROVIDERS: PCP Family Medicine; Visit Provider Obstetrics & Gynecology
DX: Z01.419 Encounter for gynecological examination (general) (routine) without abnormal findings (principal)
CPT/HCPCS: 88175

== ENCOUNTER 2025-05-27 20:12 | Outpatient (REF) | payer OTHER, SELFPAY ==
--- OUTSIDE RECORDS SUMMARY | 2025-05-27 20:16 | XMS_ITS | CCD ---
Author Organization [facility] Care Team Providers Care Drafting Detailer Name Role Phone DR SAVANNA ARIAS Primary Care Unavailable RADHA, DR MONTES Admitting Unavailable KARASIK, DR MONTES Attending Unavailable KARASIK, DR MONTES Consulting Unavailable MARKER, DR JOSE Consulting Unavailable AGUBOSIM, DUC Consulting Unavailable LONG, MINOR Consulting Unavailable AHDOOT, OPAL Consulting Unavailable DOYLE, DANYELL Consulting Unavailable TORO, GIN Consulting Unavailable EDGAR, DR RICH Admitting Unavailable TORY, DR CORRALES Primary Care Unavailable EDGAR, DR RICH Attending Unavailable EDGAR, DR RICH Consulting Unavailable JAVAN BORGES Attending Unavailable JAVAN BORGES Consulting Unavailable TORY, DR CORRALES Primary Care Unavailable JAVAN BORGES Admitting Unavailable HILARIO HERNÁNDEZ Attending Unavailable Savanna Arias MD Primary Care Provider [phone] Dl Horton Attending Unavailab Dl Araiza Admitting Unavailab le ALEXIS STAFF Primary Care Unavailable Savanna Arias MD Primary Care Provider [phone] Allergies Allergy Classification Reported Allergen(s) Allergy Type Date of Onset Reaction(s) Facility (1 source) Amoxicillin Drug Allergy [facility] Repository (7 sources) Amoxicillin Drug Allergy 04-27-2023 Rash [facility] Healthcare (7 sources) FLUoxetine Drug Allergy 09-12-2012 [facility] Medications Current Medications Medication Drug Class(es) Dates Sig (Normalized) Sig (Original) Ethinyl Estradiol / Ferrous fumarate / Norethindrone (9 sources) Estrogen Start: 02-26-2025 take 1 tablet by mouth in the morning [facility] 08/27 1-20 MG-MCG tablet Indications: control counseling TAKE 1 TABLET BY MOUTH IN THE MORNING 28 tablet 3 02/26/2025 Active Start: 05-09-2024 End: 05-09-2025 norethindrone-ethinyl estrad iol ([place] Fe 08/27) 1-20 MG-MCG tablet Indications: control counseling Take 1 tablet by mouth in the morning. 28 tablet 12 05/09/2024 05/09/2025 Active Start: 05-04-2024 End: 05-09-2024 take 1 tablet by mouth in the morning [place] Fe 20 1-20 MG-MCG tablet Indications: control counseling TAKE 1 TABLET BY MOUTH IN THE MORNING 28 tablet 3 05/04/2024 05/09/2024 Discontinued (Reorder) Start: 05-04-2024 End: 08-24-2024 take 1 tablet by mouth in the morning [place] Fe 08/27 1-20 MG-MCG tablet Indications: control counseling TAKE 1 TABLET BY MOUTH IN THE MORNING 28 tablet 3 05/04/2024 08/24/2024 Active Problems Active Problems Problem Classification Problem Date Documented Da te Episodic/Chronic Abdominal pain (3 sources) Pelvic and perineal pain; Translations: [PELVIC AND PERINEAL PAIN] Onset: 03-11-2022 Episodic Anxiety disorders (1 source) Anxiety disorder, unspecified; Translations: [ANXIETY DISORDER UNSPECIFIED] Onset: 03-17-2022 Chronic Attention-deficit, conduct, and disruptive behavior disorders (1 source) Attention-deficit hyperactivity disorder, unspecified type; Translations: [ADHD UNSPECIFIED TYPE] Onset: 03-17-2022 Chronic Contraceptive and procreative management (2 sources) Patient encounter status; Translations: [Encounter for other general counseling and advice on contraception] 05-09-2024 Episodic Immunizations and screening for infectious disease (1 source) Encounter for screening for human papillomavirus (HPV); Translations: [ENC SCREENING HUMAN PAPILLOMAVIRUS] Onset: 05-05-2022 Episodic Mood disorders (1 source) Major depressive disorder, single episode, unspecified; Translations: [ZAKIA DEPRESS D/O SINGLE EPIS UNS] Onset: 03-17-2022 Chronic Other aftercare (1 source) Other group home (current) drug therapy; Translations: [OTH CORRECTION CURRENT DRUG THERAPY] Onset: 03-17-2022 Episodic Other female genital disorders (2 sources) Pain in female pelvis; Translations: [Pelvic pain in female] 05-27-2025 Episodic Other female genital disorders (2 sources) History of gynecological disorder; Translations: [Personal history of other diseases of the female genital tract] 05-27-2025 Episodic Other gastrointestinal disorders (2 sources) Abdominal bloating; Translations: [Abdominal distension (gaseous)] 05-27-2025 Episodic Ovarian cyst (1 source) Unspecified ovarian [...] Test Name Value Interpretation Reference Range Facility IGP,APTIMA HPV,AGE GDLNon AGE GDLN ACOG TESTING Note . [facility] Comment on above: TESTS RESULT FLAG UN ITS REF RANGE LAB Clinician Provided Cytology Information Source.............Cervix;Endocervix No. of containers..01 ThinPrep Vial Age Algo ACOG Yuki... FLAG LEGEND: L-Low Normal,H-High Normal,LL-Alert Low,HH-Alert High <-Panic Low,>-Panic High,A-Abnormal,AA-Critical Abnormal Performed at: 01 =G [facility] [place] [address] [facility] [place] [address] Karen Alvarez MD, IGP, RFX APTIMA HPV ASCU Note . [facility] Comment on above: TESTS RESULT FLAG UN ITS REF RANGE LAB DIAGNOSIS: 02 NEGATIVE FOR INTRAEPITHELIAL LESION OR MALIGNANCY. THIS SPECIMEN WAS RESCREENED PART OF OUR OUTBOARD MOTOR INSPECTOR PROGRAM. Specimen adequacy: 02 Satisfactory for evaluation. Endocervical and/or squamous metaplastic cells (endocervical component) are present. Performed by: 02 Leeanne Yusuf, Yard Foreman ([facility]) QC reviewed by: 02 Caroline Castillo, Yard Foreman . 02 Note: Note 02 The Pap smear is a screening test designed to aid in the detection of premalignant and malignant conditions of the uterine cervix. It is not a diagnostic procedure and should not be used as the sole means of detecting cervical cancer. Both false-positive and false-negative reports do occur. Test Methodology: Note 02 This liquid based ThinPrep(R) pap test was screened with the use of an image guided system. . 02 The HPV DNA reflex criteria were not met with this specimen result therefore, no HPV testing was performed. FLAG LEGEND: L-Low Normal,H-High Normal,LL-Alert Low,HH-Alert High <-Panic Low,>-Panic High,A-Abnormal,AA-Critical Abnormal Performed at: 02 WB [facility] [place] [address], [place] [address] Karen Alvarez MD, Performed at: =G - [facility] [address], [place] [id number] Global Professional: Karen Alvarez MD, Phone: [phone] Performed at: - [facility] [address], [place] [id number] Global Professional: Karen Alvarez MD, Phone: [phone] BRUSH-SPATULA CERVIX ENDOCERVIX [facility] Healthcar e PAP ACOG PANEL 2: 21 to 29on 05-11-2022 . . Normal [facility] Comment on above: Performed By: #### B EDSON, TSH #### [facility] [address] [place] [address] Dr. Lizzy Catalan Age Gdln ACOG Testing - [facility] Comment on above: Performed By: #### Krupa SANDHU, TSH #### [facility] [address] [address] [address] Lizzy Catalan DIAGNOSIS: Comment [facility] Comment on above: Result Comment: NEGA TIVE FOR INTRAEPITHELIAL LESION OR MALIGNANCY. THIS SPECIMEN WAS RESCREENED PART OF OUR OUTBOARD MOTOR INSPECTOR PROGRAM. Performed By: #### Krupa SANDHU, TSH #### [facility] [address] [place] [address] Dr. Lizzy Catalan Methodology: Comment [facility] Comment on above: Result Comment: This liquid based ThinPrep(R) pap test was screened with the use of an image guided system. Performed By: #### B EDSON, TSH #### [facility] [address] [place] [address] Dr. Lizzy Catalan Note: Comment [facility] Comment on above: Result Comment: The Pap smear is a screening test designed to aid in the detection of premalignant and malignant conditions of the uterine cervix. It is not a diagnostic procedure and should not be used as the sole means of detecting cervical cancer. Both false-positive and false-negative reports do occur. . Performed By: #### B EDSON, TSH #### [facility] [address] [place], [place] [id number] Dr. Lizzy Catalan Performed by: Comment Normal [facility] Comment on above: Result Comment: Tootie Carpenter, Yard Foreman (ASCP) Performed By: #### B MP, TSH #### [facility] [address] [place] [address] Dr. Lizzy Catalan QC reviewed by: Comment Normal [facility] Comment on above: Result Comment: Colton Snowden, Yard Foreman Performed By: #### B MP, TSH #### [facility] [address] [place] [address] Dr. Lizzy Catalan Reflex Criteria: Comment Normal [facility] Comment on above: Result Comment: The HPV DNA reflex criteria were not met with this specimen result therefore, no HPV testing was performed. . Performed By: #### B MP, TSH #### [facility] [address] [place] [address] Dr. Lizzy Catalan Specimen adequacy: Comment Normal [facility] Comment on above: Result Comment: Sati sfactory for evaluation. Endocervical and/or squamous metaplastic cells (endocervical component) are present. Performed By: #### B MP, TSH #### [facility] [address] [place] [address] Dr. Lizzy Catalan CBC AUTO DIFFon 03-12-2022 BASO # 0.0 103/ul Normal 0.0-0.1 [facility] Comment on above: Performed By: #### C BC #### [facility] [address] [place] [address] Dr. Lizzy Catalan Basophils/100 WBC (Bld) 0.3 % Normal 0.2-2.0 [facility] Comment on above: Performed By: #### C BC #### [facility] [address] [place] [address] Dr. Lizzy Catalan EO # 0.0 103/ul Normal 0.0-0.7 [facility] Comment on above: Performed By: #### C BC #### [facility] [address] [place] [address] Dr. Lizzy Catalan Eosinophils/100 WBC (Bld) 0.1 % Critically low 0.9-7.0 [facility] Comment on above: Performed By: #### C BC #### [facility] [address] [place] [address] Dr. Lizzy Catalan Erythrocyte distribution width (RBC) [Ratio] 12.8 % Normal 11.0-15.0 [facility] Comment on above: Performed By: #### C BC #### [facility] [address] [place] [address] Dr. Lizzy Catalan Hematocrit (Bld) [Volume fraction] 26.1 % Critically low 36.0-48.0 [facility] Comment on above: Performed By: #### C BC #### [facility] [address] [place] [address] Dr. Lizzy Catalan Hemoglobin (Bld) [Mass/Vol] 8.4 g/dL Critically low 12.0-16.0 [facility] Comment on above: Performed By: #### C BC #### [facility] [address] [place] [address] Dr. Lizzy Catalan IG # 0.05 10e3/ul Critically high 0.00-0.03 [facility] Comment on above: Performed By: #### C BC #### [facility] [address] [place] [address] Dr. Lizzy Catalan IG % 0.4 % Normal 0.0-0.5 [facility] Comment on above: Performed By: #### C BC #### [facility] [address] [place] [address] Dr. Lizzy Catalan LYMPH # 1.5 103/ul Normal 1.2-3.8 [facility] Comment on above: Performed By: #### C BC #### [facility] [address] [place] [address] Dr. Lizzy Catalan Lymphocytes/100 WBC (Bld) 11.4 % Critically low 20.5-60.0 [facility] Comment on above: Performed By: #### C BC #### [facility] [address] [place] [address] Dr. Lizzy Catalan MANUAL DIFF REQ NO Normal [facility] Comment on above: Performed By: #### C BC #### [facility] [address] [place] [address] Dr. Lizzy Catalan MCH (RBC) [Entitic mass] 28.7 pg Normal 26.7-34.0 [facility] Comment on above: Performed By: #### C BC #### [facility] [address] [place] [address] Dr. Lizzy Catalan MCHC (RBC) [Mass/Vol] 32.2 g/dL Normal 29.9-35.2 [facility] Comment on above: Performed By: #### C BC #### [facility] [address] [place] [address] Dr. Lizzy Catalan MCV (RBC) [Entitic vol] 89.1 fL Normal 81.0-99.0 [facility] Comment on above: Performed By: #### C BC #### [facility] [address] [place] [address] Dr. Lizzy Catalan MONO # 1.2 103/ul Critically high 0.3-0.8 [facility] Comment on above: Performed By: #### C BC #### [facility] [address] [place] [address] Dr. Lizzy Catalan Monocytes/100 WBC (Bld) 9.3 % Normal 1.7-12.0 [facility] Comment on above: Performed By: #### C BC #### [facility] [address] [place] [address] Dr. Lizzy Catalan NEUT # 10.1 103/ul Critically high 1.4-6.5 [facility] Comment on above: Performed By: #### C BC #### [facility] [address] [place] [address] Dr. Lizzy Catalan Neutrophils/100 WBC (Bld) 78.5 % Critically high 43.0-75.0 [facility] Comment on above: Performed By: #### C BC #### [facility] [address] [place] [address] Dr. Lizzy Catalan Platelet mean volume (Bld) [Entitic vol] 10.0 fL Normal 9.5-13.5 [facility] Comment on above: Performed By: #### C BC #### [facility] [address] [place] [address] Dr. Lizzy Catalan PLT 333 103/ul Normal 150-[address] [facility] Comment on above: Performed By: #### C BC #### [facility] [address] [place] [address] Dr. Lizzy Catalan RBC 2.93 106/ul Critically low 4.20-5.40 [facility] Comment on above: Performed By: #### C BC #### [facility] [address] [place] [address] Dr. Lizzy Catalan WBC 12.9 103/ul Critically high 4.0-11.0 [facility] Comment on above: Performed By: #### C BC #### [facility] [address] [place] [address] Dr. Lizzy Catalan CBC AUTO DIFFon 03-11-2022 BASO # 0.0 103/ul Normal 0.0-0.1 [facility] Comment on above: Performed By: #### C BC #### [facility] [address] [place] [address] Dr. Lizzy Catalan Basophils/100 WBC (Bld) 0.2 % Normal 0.2-2.0 [facility] Comment on above: Performed By: #### C BC #### [facility] [address] [place] [address] Dr. Lizzy Catalan EO # 0.0 103/ul Normal 0.0-0.7 [facility] Comment on above: Performed By: #### C BC #### [facility] [address] [place] [address] Dr. Lizzy Catalan Eosinophils/100 WBC (Bld) 0.1 % Critically low 0.9-7.0 [facility] Comment on above: Performed By: #### C BC #### [facility] [address] [place] [address] Dr. Lizzy Catalan Erythrocyte distribution width (RBC) [Ratio] 12.8 % Normal 11.0-15.0 [facility] Comment on above: Performed By: #### C BC #### [facility] [address] [address] [address] Lizzy Catalan Hematocrit (Bld) [Volume fraction] 27.3 % Critically low 36.0-48.0 [facility] Comment on above: Performed By: #### C BC #### [facility] [address] [place] [address] Dr. Lizzy Catalan Hemoglobin (Bld) [Mass/Vol] 9.2 g/dL Critically low 12.0-16.0 [facility] Comment on above: Performed By: #### C BC #### [facility] [address] [place] [address] Dr. Lizzy Catalan IG # 0.05 10e3/ul Critically high 0.00-0.03 [facility] Comment on above: Performed By: #### C BC #### [facility] [address] [place] [address] Dr. Lizzy Catalan IG % 0.4 % Normal 0.0-0.5 [facility] Comment on above: Performed By: #### C BC #### [facility] [address] [place] [address] Dr. Lizzy Catalan LYMPH # 0.5 103/ul Critically low 1.2-3.8 [facility] Comment on above: Performed By: #### C BC #### [facility] [address] [place] [address] Dr. Lizzy Catalan Lymphocytes/100 WBC (Bld) 4.2 % Critically low 20.5-60.0 [facility] Comment on above: Performed By: #### C BC #### [facility] [address] [place] [address] Dr. Lizzy Catalan MANUAL DIFF REQ NO Normal [facility] Comment on above: Performed By: #### C BC #### [facility] [address] [place] [address] Dr. Lizzy Catalan MCH (RBC) [Entitic mass] 29.4 pg Normal 26.7-34.0 [facility] Comment on above: Performed By: #### C BC #### [facility] [address] [address] [address] Lizzy Catalan MCHC (RBC) [Mass/Vol] 33.7 g/dL Normal 29.9-35.2 [facility] Comment on above: Performed By: #### C BC #### [facility] [address] [address] [address] Lizzy Catalan MCV (RBC) [Entitic vol] 87.2 fL Normal 81.0-99.0 [facility] Comment on above: Performed By: #### C BC #### [facility] [address] [address] [address] Lizzy Catalan MONO # 0.3 103/ul Normal 0.3-0.8 [facility] Comment on above: Performed By: #### C BC #### [facility] [address] [place] [address] Dr. Lizzy Catalan Monocytes/100 WBC (Bld) 2.5 % Normal 1.7-12.0 [facility] Comment on above: Performed By: #### C BC #### [facility] [address] [address] [address] Lizzy Catalan NEUT # 11.5 103/ul Critically high 1.4-6.5 [facility] Comment on above: Performed By: #### C BC #### [facility] [address] [place] [address] Dr. Lizzy Catalan Neutrophils/100 WBC (Bld) 92.6 % Critically high 43.0-75.0 [facility] Comment on above: Performed By: #### C BC #### [facility] [address] [address] [address] Lizzy Catalan Platelet mean volume (Bld) [Entitic vol] 10.0 fL Normal 9.5-13.[address] [facility] Comment on above: Performed By: #### C BC #### [facility] [address] [place] [address] Dr. Lizzy Catalan PLT 329 103/ul Normal 150-[address] [facility] Comment on above: Performed By: #### C BC #### [facility] [address] [address] [address] Lizzy Catalan RBC 3.13 106/ul Critically low 4.20-5.40 [facility] Comment on above: Performed By: #### C BC #### [facility] [address] [address] [address] Lizzy Catalan WBC 12.4 103/ul Critically high 4.0-11.0 [facility] Comment on above: Performed By: #### C BC #### [facility] [address] [address] [address] Lizzy Catalan BASO # 0.1 103/ul Normal 0.0-0.1 [facility] Comment on above: Performed By: #### C BC #### [facility] [address] [place] [address] Dr. Lizzy Catalan Basophils/100 WBC (Bld) 0.7 % Normal 0.2-2.0 [facility] Comment on above: Performed By: #### C BC #### [facility] [address] [place] [address] Dr. Lizzy Catalan EO # 0.0 103/ul Normal 0.0-0.7 [facility] Comment on above: Performed By: #### C BC #### [facility] [address] [place] [address] Dr. Lizzy Catalan Eosinophils/100 WBC (Bld) 0.3 % Critically low 0.9-7.0 [facility] Comment on above: Performed By: #### C BC #### [facility] [address] [place] [address] Dr. Lizzy Catalan Erythrocyte distribution width (RBC) [Ratio] 12.5 % Normal 11.0-15.0 [facility] Comment on above: Performed By: #### C BC #### [facility] [address] [place] [address] Dr. Lizzy Catalan Hematocrit (Bld) [Volume fraction] 26.7 % Critically low 36.0-48.0 [facility] Comment on above: Performed By: #### C BC #### [facility] [address] [address] [address] Lizzy Catalan Hemoglobin (Bld) [Mass/Vol] 8.9 g/dL Critically low 12.0-16.0 [facility] Comment on above: Performed By: #### C BC #### [facility] [address] [address] [address] Lizzy Catalan IG # 0.05 10e3/ul Critically high 0.00-0.03 [facility] Comment on above: Performed By: #### C BC #### [facility] [address] [address] [address] Lizzy Catalan IG % 0.5 % Normal 0.0-0.5 [facility] Comment on above: Performed By: #### C BC #### [facility] [address] [place] [address] Dr. Lizzy Catalan LYMPH # 2.0 103/ul Normal 1.2-3.[address] [facility] Comment on above: Performed By: #### C BC #### [facility] [address] [place] [address] Dr. Lizzy Catalan Lymphocytes/100 WBC (Bld) 19.2 % Critically low 20.5-60.0 [facility] Comment on above: Performed By: #### C BC #### [facility] [address] [place] [address] Dr. Lizzy Catalan MANUAL DIFF REQ NO Normal [facility] Comment on above: Performed By: #### C BC #### [facility] [address] [place] [address] Dr. Lizzy Catalan MCH (RBC) [Entitic mass] 28.7 pg Normal 26.7-34.[address] [facility] Comment on above: Performed By: #### C BC #### [facility] [address] [place] [address] Dr. Lizzy Catalan MCHC (RBC) [Mass/Vol] 33.3 g/dL Normal 29.9-35.[address] [facility] Comment on above: Performed By: #### C BC #### [facility] [address] [address] [address] Lizzy Catalan MCV (RBC) [Entitic vol] 86.1 fL Normal 81.0-99.[address] [facility] Comment on above: Performed By: #### C BC #### [facility] [address] [place] [address] Dr. Lizzy Catalan MONO # 1.0 103/ul Critically high 0.3-0.8 [facility] Comment on above: Performed By: #### C BC #### [facility] [address] [place] [address] Dr. Lizzy Catalan Monocytes/100 WBC (Bld) 9.6 % Normal 1.7-12.[address] [facility] Comment on above: Performed By: #### C BC #### [facility] [address] [place] [address] Dr. Lizzy Catalan NEUT # 7.4 103/ul Critically high 1.4-6.5 [facility] Comment on above: Performed By: #### C BC #### [facility] [address] [place] [address] Dr. Lizzy Catalan Neutrophils/100 WBC (Bld) 69.7 % Normal 43.0-75.[address] [facility] Comment on above: Performed By: #### C BC #### [facility] [address] [place] [address] Dr. Lizzy Catalan Platelet mean volume (Bld) [Entitic vol] 9.8 fL Normal 9.5-13.[address] [facility] Comment on above: Performed By: #### C BC #### [facility] [address] [place] [address] Dr. Lizzy Catalan PLT 308 103/ul Normal 150-[address] [facility] Comment on above: Performed By: #### C BC #### [facility] [address] [place] [address] Dr. Lizzy Catalan RBC 3.10 106/ul Critically low 4.20-5.40 [facility] Comment on above: Performed By: #### C BC #### [facility] [address] [place] [address] Dr. Lizzy Catalan WBC 10.6 103/ul Normal 4.0-11.[address] [facility] Comment on above: Performed By: #### C #### [facility] [id number] Lizzy Catalan [address] ABD/PELV W CONon [...] EMMA TORO Date: 2022-03-11 00:41 Normal [address] [facility]on SARS-CoV-2 (COVID-19) RNA LEONIDES+probe Ql (Unsp spec) Not detected Normal NOT DETECTED The [facility] Comment on above: Result Comment: When [...] for this test is supported by the [employer] Helper of Health and Human Service's declaration that [...] Performed By: #### B MP, TSH #### [facility] [address] [place] [address] Dr. Lizzy Catalan ER URINE PROFILEon 2 Bilirubin Ql (U) SMALL Abnormal NEGATIVE [facility] Comment on above: Performed By: #### U MICRO, ERUR, PREGU #### [facility] [address] [place] [address] Dr. Lizzy Catalan Clarity (U) CLEAR Normal CLEAR [facility] Comment on above: Performed By: #### U MICRO, ERUR, PREGU #### [facility] [address] [place] [address] Dr. Lizzy Catalan Color (U) DK. YELLOW Normal YELLOW [facility] Comment on above: Performed By: #### U MICRO, ERUR, PREGU #### [facility] [address] [place] [address] Dr. Lizzy BARRIOSAHD A micrscopic examination will be performed if indicated. Normal [facility] Comment on above: Performed By: #### U MICRO, ERUR, PREGU #### [facility] [address] [place] [address] Dr. Lizzy Catalan Glucose Ql (U) Negative Normal NEGATIVE [facility] Comment on above: Performed By: #### U MICRO, ERUR, PREGU #### [facility] [address] [address] [address] Lizzy Catalan Hemoglobin Ql (U) MODERATE Abnormal NEGATIVE [facility] Comment on above: Performed By: #### U MICRO, ERUR, PREGU #### [facility] [address] [address] [address] Lizzy Catalan Ketones Ql (U) Negative Normal NEGATIVE [facility] Comment on above: Performed By: #### U MICRO, ERUR, PREGU #### [facility] [address] [address] [address] Lizzy Catalan LEUKOCYTES Negative Normal NEGATIVE [facility] Comment on above: Performed By: #### U MICRO, ERUR, PREGU #### [facility] [address] [address] [address] Lizzy Catalan Nitrite Ql (U) Negative Normal NEGATIVE [facility] Comment on above: Performed By: #### U MICRO, ERUR, PREGU #### [facility] [address] [address] [address] Lizzy Catalan pH (U) 5.0 [pH] Normal 5-9 [facility] Comment on above: Performed By: #### U MICRO, ERUR, PREGU #### [facility] [address] [address] [address] Lizzy Catalan SPEC GRAVITY >=1.030 Abnormal 1.005-<=1.025 [facility] Comment on above: Performed By: #### U MICRO, ERUR, PREGU #### [facility] [address] [address] [address] Lizzy Catalan UA PROTEIN TRACE Normal NEGATIVE/ TRACE [facility] Comment on above: Performed By: #### U MICRO, ERUR, PREGU #### [facility] [address] [address] [address] Lizzy Catalan UR MICRO IND INDICATED Normal [facility] Comment on above: Performed By: #### U MICRO, ERUR, PREGU #### [facility] [address] [place] [address] Dr. Lizzy Catalan Urobilinogen Qn (U) 0.2 {David'U}/dL Normal 0.2 - 1.[address] [facility] Comment on above: Performed By: #### U MICRO, ERUR, PREGU #### [facility] [address] [place] [address] Dr. Lizzy Catalan URon 03-11-2022 , QUAL Negative Normal NEGATIVE [facility] Comment on above: Performed By: #### U MICRO, ERUR, PREGU #### [facility] [address] [place] [address] Dr. Lizzy Catalan URINE MICROSCOPIC ONLYon BACTERIA TRACE Abnormal NONE SEEN The [facility] Comment on above: Performed By: #### B MP, TSH #### [facility] [address] [place] [address] Dr. Lizzy Catalan Bacteria identified Cx Nom (U) NOT INDICATED Normal [facility] Comment on above: Performed By: #### B MP, TSH #### [facility] [address] [place] [address] Dr. Lizzy Catalan CAST NONE SEEN Normal NONE SEEN [facility] Comment on above: Performed By: #### B MP, TSH #### [facility] [address] [place] [address] Dr. Lizzy Catalan Crystals LM Nom (Urine sed) NONE SEEN Normal NONE SEEN [facility] Comment on above: Performed By: #### B MP, TSH #### [facility] [address] [place] [address] Dr. Lizzy Catalan Epithelial cells LM Ql (Urine sed) FEW Abnormal NONE SEEN /RARE [facility] Comment on above: Performed By: #### B MP, TSH #### [facility] [address] [place] [address] Dr. Lizzy Catalan MUCOUS NONE SEEN Normal NONE SEEN [facility] Comment on above: Performed By: #### B MP, TSH #### [facility] [address] [place] [address] Dr. Lizzy Catalan RBC 5-10 Abnormal 0-2 [facility] Comment on above: Performed By: #### B MP, TSH #### [facility] [address] [place], [place] [address] Dr. Lizzy Catalan WBC 2-5 Abnormal NONE SEEN The [facility] Comment on above: Performed By: #### B MP, TSH #### [facility] [address] [place], [place] [address] Dr. Lizzy Catalan US PELVISon 03-11-2022 US [...] beneficial. This patient may also benefit from INCIDENT RESPONSE MANAGER consultation. Electronically authenticated by: DANYELL KWON Date: 2022-03-10 22:59 Normal [address] [facility] XR ABD FLAT UP_PA Magdaleno 03-11 [...] DELA CRUZ Date: 2022-03-10 23:09 Normal [address] [facility] CBC AUTO DIFFon 03-10-2022 BASO # 0.1 103/ul Normal 0.0-0.[address] [facility] Comment on above: Performed By: #### B EDSON, TSH #### [facility] [address] [address] [address] Lizzy Catalan Basophils/100 WBC (Bld) 0.9 % Normal 0.2-2.0 [facility] Comment on above: Performed By: #### B MP, TSH #### [facility] [address] [address] [address] Lizzy Catalan EO # 0.1 103/ul Normal 0.0-0.[address] [facility] Comment on above: Performed By: #### B MP, TSH #### [facility] [address] [address] [address] Lizzy Catalan Eosinophils/100 WBC (Bld) 1.1 % Normal 0.9-7.[address] [facility] Comment on above: Performed By: #### B MP, TSH #### [facility] [address] [address] [address] Lizzy Catalan Erythrocyte distribution width (RBC) [Ratio] 12.4 % Normal 11.0-15.[address] [facility] Comment on above: Performed By: #### B MP, TSH #### [facility] [address] [address] [address] Lizzy Catalan Hematocrit (Bld) [Volume fraction] 34.1 % Critically low 36.0-48.0 [facility] Comment on above: Performed By: #### B MP, TSH #### [facility] [address] [place] [address] Dr. Lizzy Catalan Hemoglobin (Bld) [Mass/Vol] 11.5 g/dL Critically low 12.0-16.0 [facility] Comment on above: Performed By: #### B MP, TSH #### [facility] [address] [place] [address] Dr. Lizzy Catalan IG # 0.02 10e3/ul Normal 0.00-0.03 [facility] Comment on above: Performed By: #### B MP, TSH #### [facility] [address] [place] [address] Dr. Lizzy Catalan IG % 0.2 % Normal 0.0-0.5 [facility] Comment on above: Performed By: #### B MP, TSH #### [facility] [address] [place] [address] Dr. Lizzy Catalan LYMPH # 3.4 103/ul Normal 1.2-3.8 [facility] Comment on above: Performed By: #### B MP, TSH #### [facility] [address] [place] [address] Dr. Lizzy Catalan Lymphocytes/100 WBC (Bld) 33.0 % Normal 20.5-60.0 [facility] Comment on above: Performed By: #### B MP, TSH #### [facility] [address] [place] [address] Dr. Lizzy Catalan MANUAL DIFF REQ NO Normal [facility] Comment on above: Performed By: #### B MP, TSH #### [facility] [address] [place] [address] Dr. Lizzy Catalan MCH (RBC) [Entitic mass] 28.8 pg Normal 26.7-34.0 [facility] Comment on above: Performed By: #### B MP, TSH #### [facility] [address] [place] [address] Dr. Lizzy Catalan MCHC (RBC) [Mass/Vol] 33.7 g/dL Normal 29.9-35.2 [facility] Comment on above: Performed By: #### B MP, TSH #### [facility] [address] [address] [address] Lizzy Catalan MCV (RBC) [Entitic vol] 85.3 fL Normal 81.0-99.0 [facility] Comment on above: Performed By: #### B MP, TSH #### [facility] [address] [place] [address] Dr. Lizzy Catalan MONO # 1.0 103/ul Critically high 0.3-0.8 [facility] Comment on above: Performed By: #### B MP, TSH #### [facility] [address] [place] [address] Dr. Lizzy Catalan Monocytes/100 WBC (Bld) 9.9 % Normal 1.7-12.0 [facility] Comment on above: Performed By: #### B MP, TSH #### [facility] [address] [place] [address] Dr. Lizzy Catalan NEUT # 5.6 103/ul Normal 1.4-6.5 [facility] Comment on above: Performed By: #### B MP, TSH #### [facility] [address] [place] [address] Dr. Lizzy Catalan Neutrophils/100 WBC (Bld) 54.9 % Normal 43.0-75.[address] [facility] Comment on above: Performed By: #### B MP, TSH #### [facility] [address] [place] [address] Dr. Lizzy Catalan Platelet mean volume (Bld) [Entitic vol] 9.5 fL Normal 9.5-13.[address] [facility] Comment on above: Performed By: #### B MP, TSH #### [facility] [address] [place] [address] Dr. Lizzy Catalan PLT 483 103/ul Critically high 150-450 [facility] Comment on above: Performed By: #### B MP, TSH #### [facility] [address] [place] [address] Dr. Lizzy Catalan RBC 4.00 106/ul Critically low 4.20-5.40 [facility] Comment on above: Performed By: #### B MP, TSH #### [facility] [address] [place] [address] Dr. Lizzy Catalan WBC 10.1 103/ul Normal 4.0-11.0 [facility] Comment on above: Performed By: #### B MP, TSH #### [facility] [address] [place] [address] Dr. Lizzy Catalan PROF 14(COMP METB)on 022 Albumin [Mass/Vol] 3.7 g/dL Normal 3.4-5.0 [facility] Comment on above: Performed By: #### C MP #### [facility] [address] [place] [address] Dr. Lizzy Catalan Albumin/Globulin [Mass ratio] 1.1 {ratio} Normal [facility] Comment on above: Performed By: #### C MP #### [facility] [address] [place] [address] Dr. Lizzy Catalan ALP [Catalytic activity/Vol] 76 U/L Normal 46-[address] [facility] Comment on above: Performed By: #### C MP #### [facility] [address] [place] [address] Dr. Lizzy Catalan ALT [Catalytic activity/Vol] 17 U/L Normal 14-[address] [facility] Comment on above: Performed By: #### C MP #### [facility] [address] [place] [address] Dr. Lizzy Catalan Anion gap [Moles/Vol] 11.6 mmol/L Normal [facility] Comment on above: Performed By: #### C MP #### [facility] [address] [place] [address] Dr. Lizzy Catalan AST [Catalytic activity/Vol] 14 U/L Critically low 15-[address] [facility] Comment on above: Performed By: #### C MP #### [facility] [address] [place] [address] Dr. Lizzy Catalan Bilirubin [Mass/Vol] 0.5 mg/dL Normal 0.2-1.0 [facility] Comment on above: Performed By: #### C MP #### [facility] [address] [address] [address] Lizzy Catalan Calcium [Mass/Vol] 8.7 mg/dL Normal 8.5-10.[address] [facility] Comment on above: Performed By: #### C MP #### [facility] [address] [address] [address] Lizzy Catalan Chloride [Moles/Vol] 104 mmol/L Normal 98-[address] [facility] Comment on above: Performed By: #### C MP #### [facility] [address] [address] [address] Lizzy Catalan CO2 [Moles/Vol] 28.2 mmol/L Normal 21.0-32.0 [facility] Comment on above: Performed By: #### C MP #### [facility] [address] [place] [address] Dr. Lizzy Catalan Creatinine [Mass/Vol] 0.80 mg/dL Normal 0.55-1.02 [facility] Comment on above: Performed By: #### C MP #### [facility] [address] [address] [address] Lizzy Catalan EGFR-AF MALAGASY >60 Normal >=60 [facility] Comment on above: Performed By: #### C MP #### [facility] [address] [address] [address] Lizzy Catalan EGFR-NON AF MALAGASY >60 Normal >=[address] [facility] Comment on above: Performed By: #### C MP #### [facility] [address] [address] [address] Lizzy Catalan Globulin (S) [Mass/Vol] 3.3 g/dL Normal [facility] Comment on above: Performed By: #### C MP #### [facility] [address] [address] [address] Lizzy Catalan Glucose [Mass/Vol] 139 mg/dL Critically high 74-[address] [facility] Comment on above: Performed By: #### C MP #### [facility] [address] [address] [address] Lizzy Catalan Potassium [Moles/Vol] 3.8 mmol/L Normal 3.5-5.1 [facility] Comment on above: Performed By: #### C MP #### [facility] [address] [place] [address] Dr. Lizzy Catalan Protein [Mass/Vol] 7.0 g/dL Normal 6.4-8.[address] [facility] Comment on above: Performed By: #### C MP #### [facility] [address] [place] [address] Dr. Lizzy Catalan Sodium [Moles/Vol] 140 mmol/L Normal 136-145 [facility] Comment on above: Performed By: #### C MP #### [facility] [address] [place] [address] Dr. Lizzy Catalan Urea nitrogen [Mass/Vol] 12.0 mg/dL Normal 7.0-18.0 [facility] Comment on above: Performed By: #### C MP #### [facility] [address] [place] [address] Dr. Lizzy Catalan Urea nitrogen/Creatini ne [Mass ratio] 15.0 mg/mg Normal [facility] Comment on above: Performed By: #### C MP #### [facility] [address] [place] [address] Dr. Lizzy Catalan CBC AUTO DIFFon 01-07-2022 BASO # 0.1 103/ul Normal 0.0-0.[address] [facility] Comment on above: Performed By: #### B MP, TSH #### [facility] [address] [place] [address] Dr. Lizzy Catalan Basophils/100 WBC (Bld) 1.2 % Normal 0.2-2.[address] [facility] Comment on above: Performed By: #### B MP, TSH #### [facility] [address] [place] [address] Dr. Lizzy Catalan EO # 0.1 103/ul Normal 0.0-0.[address] [facility] Comment on above: Performed By: #### B MP, TSH #### [facility] [address] [place] [address] Dr. Lizzy Catalan Eosinophils/100 WBC (Bld) 0.7 % Critically low 0.9-7.0 [facility] Comment on above: Performed By: #### B MP, TSH #### [facility] [address] [place] [address] Dr. Lizzy Catalan Erythrocyte distribution width (RBC) [Ratio] 12.4 % Normal 11.0-15.0 [facility] Comment on above: Performed By: #### B MP, TSH #### [facility] [address] [place] [address] Dr. Lizzy Catalan Hematocrit (Bld) [Volume fraction] 43.3 % Normal 36.0-48.0 [facility] Comment on above: Performed By: #### B MP, TSH #### [facility] [address] [place] [address] Dr. Lizzy Catalan Hemoglobin (Bld) [Mass/Vol] 14.3 g/dL Normal 12.0-16.0 [facility] Comment on above: Performed By: #### B MP, TSH #### [facility] [address] [place] [address] Dr. Lizzy Catalan IG # 0.02 10e3/ul Normal 0.00-0.03 [facility] Comment on above: Performed By: #### B MP, TSH #### [facility] [address] [place] [address] Dr. Lizzy Catalan IG % 0.2 % Normal 0.0-0.[address] [facility] Comment on above: Performed By: #### B MP, TSH #### [facility] [address] [place] [address] Dr. Lizzy Catalan LYMPH # 2.4 103/ul Normal 1.2-3.[address] [facility] Comment on above: Performed By: #### B MP, TSH #### [facility] [address] [place] [address] Dr. Lizzy Catalan Lymphocytes/100 WBC (Bld) 29.6 % Normal 20.5-60.0 [facility] Comment on above: Performed By: #### B MP, TSH #### [facility] [address] [place] [address] Dr. Lizzy Catalan MANUAL DIFF REQ NO Normal [facility] Comment on above: Performed By: #### B MP, TSH #### [facility] [address] [place] [address] Dr. Lizzy Catalan MCH (RBC) [Entitic mass] 29.2 pg Normal 26.7-34.0 [facility] Comment on above: Performed By: #### B MP, TSH #### [facility] [address] [place] [address] Dr. Lizzy Catalan MCHC (RBC) [Mass/Vol] 33.0 g/dL Normal 29.9-35.2 [facility] Comment on above: Performed By: #### B MP, TSH #### [facility] [address] [place] [address] Dr. Lizzy Catalan MCV (RBC) [Entitic vol] 88.5 fL Normal 81.0-99.0 [facility] Comment on above: Performed By: #### B MP, TSH #### [facility] [address] [place] [address] Dr. Lizzy Catalan MONO # 1.1 103/ul Critically high 0.3-0.8 [facility] Comment on above: Performed By: #### B MP, TSH #### [facility] [address] [place] [address] Dr. Lizzy Catalan Monocytes/100 WBC (Bld) 13.2 % Critically high 1.7-12.0 [facility] Comment on above: Performed By: #### B MP, TSH #### [facility] [address] [place] [address] Dr. Lizzy Catalan NEUT # 4.5 103/ul Normal 1.4-6.5 [facility] Comment on above: Performed By: #### B MP, TSH #### [facility] [address] [place] [address] Dr. Lizzy Catalan Neutrophils/100 WBC (Bld) 55.1 % Normal 43.0-75.0 [facility] Comment on above: Performed By: #### B MP, TSH #### [facility] [address] [place] [address] Dr. Lizzy Catalan Platelet mean volume (Bld) [Entitic vol] 9.6 fL Normal 9.5-13.5 [facility] Comment on above: Performed By: #### B MP, TSH #### [facility] [address] [place] [address] Dr. Lizzy Catalan PLT 443 103/ul Normal 150-[address] [facility] Comment on above: Performed By: #### B MP, TSH #### [facility] [address] [place] [address] Dr. Lizzy Catalan RBC 4.89 106/ul Normal 4.20-5.40 [facility] Comment on above: Performed By: #### B MP, TSH #### [facility] [address] [place] [address] Dr. Lizzy Catalan WBC 8.1 103/ul Normal 4.0-11.0 [facility] Comment on above: Performed By: #### B MP, TSH #### [facility] [address] [place] [address] Dr. Lizzy Catalan PROF CHEM 8 (BAS METB)on Anion gap [Moles/Vol] 12.5 mmol/L Normal [facility] Comment on above: Performed By: #### B MP, TSH #### [facility] [facility] [address] [place] [address] Dr. Lizzy Catalan Calcium [Mass/Vol] 9.4 mg/dL Normal 8.5-10.[address] [facility] Comment on above: Performed By: #### B MP, TSH #### [facility] [address] [place] [address] Dr. Lizzy Catalan Chloride [Moles/Vol] 102 mmol/L Normal 98-[address] [facility] Comment on above: Performed By: #### B MP, TSH #### [facility] [address] [place] [address] Dr. Lizzy Catalan CO2 [Moles/Vol] 28.9 mmol/L Normal 21.0-32.0 [facility] Comment on above: Performed By: #### B MP, TSH #### [facility] [address] [place] [address] Dr. Lizzy Catalan Creatinine [Mass/Vol] 0.85 mg/dL Normal 0.55-1.02 [facility] Comment on above: Performed By: #### B MP, TSH #### [facility] [address] [address] [address] Lizzy Catalan EGFR-AF MALAGASY >60 Normal >=60 [facility] Comment on above: Performed By: #### B MP, TSH #### [facility] [address] [address] [address] Lizzy Catalan EGFR-NON AF MALAGASY >60 Normal >=[address] [facility] Comment on above: Performed By: #### B MP, TSH #### [facility] [address] [place] [address] Dr. Lizzy Catalan Glucose [Mass/Vol] 97 mg/dL Normal 74-[address] [facility] Comment on above: Performed By: #### B MP, TSH #### [facility] [address] [address] [address] Lizzy Catalan Potassium [Moles/Vol] 4.4 mmol/L Normal 3.5-5.[address] [facility] Comment on above: Performed By: #### B MP, TSH #### [facility] [address] [address] [address] Lizzy Catalan Sodium [Moles/Vol] 139 mmol/L Normal 136-[address] [facility] Comment on above: Performed By: #### B MP, TSH #### [facility] [address] [address] [address] Lizzy Catalan Urea nitrogen [Mass/Vol] 10.0 mg/dL Normal 7.0-18.[address] [facility] Comment on above: Performed By: #### B MP, TSH #### [facility] [address] [place] [address] Dr. Lizzy Catalan Urea nitrogen/Creatini ne [Mass ratio] 11.8 mg/mg Normal [facility] Comment on above: Performed By: #### B MP, TSH #### [facility] [address] [address] [address] Lizzy Catalan TSHon 01-07-2022 TSH 2.753 uIU/mL Normal 0.358-3.740 [facility] Comment on above: Performed By: #### B MP, TSH #### [facility] [address] [address] [address] Lizzy Catalan TSH RANGE SEE BELOW Normal The [facility] Comment on above: Result Comment: <0.3 4 UIU/ml HYPERTHYROID 0.34-5.60 UIU/ml EUTHYROID >5.60 UIU/ml HYPOTHYROID Performed By: #### B MP, TSH #### [facility] [address] [address] [address] Lizzy Catalan Rehab Psych Evaluationon Rehab Psych Evaluation MR#: [id number] REHABILITATION SERVICES ( ) INPATIENT (x) OUTPATIENT Patient Name: Shirley Khalil Date of : 1995 Referring Physician: Darinel Danielson MD Dictated By: Sriram Starr, PhD Evaluation Date: 04/08/2021 neuropsychological evaluation DATES OF SERVICE: 04/08/2021-04/20/2021 DIAGNOSIS: Other amnesia DATE OF ONSET: Unknown DATE OF : 1995 AGE: 25 years TIME SPENT: 57118=5 unit; 44531=9 unit; 27661=4 units; 83597=6 unit; 13536=5 units REASON FOR REFERRAL: This is the [...] medication management once every three months at [facility] and also sees a counselor once [...] Ms. Khalil indicates she was born near [place] and presently resides in [place], [place], with her mother and father. She adds no children. EDUCATIONAL HISTORY: Ms. Khalil indicates she graduated from high school and notes no additional schooling. She notes she attained average grades, but struggled with [place]-related classes. She adds no history of special education or grade retention. She is credited with 12 years of education. VOCATIONAL HISTORY: Ms. Khalil indicates she recently ceased employment as an office support. She notes she did this work for [...] experience (more content not included)... Normal [facility] Vital Signs Date Time Vital Sign Value Performing Clinician Snow araujo 05-27-2025 14:40-0400 Body height 167.6 cm [employer] Phone: [facility] 05-27-2025 14:40-0400 Body mass index (BMI) [Ratio] 25.89 kg/m2 [employer] Phone: [facility] 05-27-2025 14:40-0400 Body weight 72.76 kg [employer] Work Phone: [facility] 05-27-2025 14:40-0400 Diastolic blood pressure 68 mm[Hg] [employer] Work Phone: [facility] 05-27-2025 14:40-0400 Systolic blood pressure 108 mm[Hg] [employer] Work Phone: [facility] 05-09-2024 10:57-0400 Body height 167.6 cm [employer] Phone: [facility] 05-09-2024 10:57-0400 Body mass index (BMI) [Ratio] 23.89 kg/m2 Hilario Edgar DO Work Phone: [facility] 05-09-2024 10:57-0400 Body weight 67.13 kg Hilario Edgar DO Work Phone: [facility] 05-09-2024 10:57-0400 Diastolic blood pressure 78 mm[Hg] Hilario Edgar DO Work Phone: [facility] 05-09-2024 10:57-0400 Systolic blood pressure 122 mm[Hg] Hilario Edgar DO Work Phone: [facility] Encounters Encounter Date Encounter Type Care Provider Facility Start: 05-27-2025 End: 05-27-2025 Patient encounter procedure Hilario Edgar DO Work Phone: [facility] Start: 05-27-2025 End: 05-27-2025 Periodic preventive med est patient 18-39 yrs Hilario Edgar DO Work Phone: [facility] Comment on above: Well woman exam with routine gynecological exam; Pelvic pain in female; Abdominal bloating; History of ovarian cyst Start: 05-27-2025 End: 05-27-2025 Bamboo flowsheet Hilario Edgar DO Work Phone: [facility] Start: 05-27-2025 End: 05-27-2025 Bamboo flowsheet Hilario Edgar DO Work Phone: [facility] Start: 05-21-2025 ambulatory Dl Arana acility:[facility] Start: 05-09-2024 End: 05-09-2024 Bamboo flowsheet Hilario Edgar DO Work Phone: [facility] Start: 05-09-2024 End: 05-18-2024 Bamboo flowsheet Hilario Edgar DO Work Phone: [facility] Start: 05-09-2024 End: 05-18-2024 Clinisync Result Encounter Hilario Hernández DO Work Phone: [facility] External Department Unsolicited Start: 05-09-2024 End: 05-09-2024 Patient encounter procedure Hilario Hernández DO Work Phone: [facility] Healthcare Start: 05-09-2024 End: 05-09-2024 Periodic preventive med est patient 18-39 yrs Hilario Hernández DO Work Phone: [facility] Comment on above: Well woman exam with routine gynecological exam; control counseling Start: 05-09-2024 End: 05-09-2024 ambulatory IHLARIO HERNÁNDEZ Not Available Start: 05-05-2022 Encounter for cervic al smear to confirm findings of recent normal smear following initial abnormal smear DR HILARIO HERNÁNDEZ [facility] Start: 05-03-2022 End: 05-03-[address] HILARIO HERNÁNDEZ Facility:[facility] Start: 05-03-2022 End: 05-03-2022 Encounter for cervical smear to confirm findings of recent normal smear following initial abnormal smear DR HILARIO HERNÁNDEZ Facility:[facility] Start: 03-11-2022 End: 03-12-[address] SAVANNA ARIAS Facility:[facility] Start: 01-07-2022 End: 01-08-2022 ambulatory JAVAN BORGES Facility:[facility] Procedures Date Procedure Procedure Detail Performing Clinician Start: 05-09-2024 IGP,APTIMA HPV,AGE GDLN Hilario Edgar DO Work Phone: Start: 05-09-2024 Microscopic observat ion [Identifier] in Cervix by Cyto stain Hilario Hernández DO Work Phone: Plan of Treatment Date Care Activity Detail Author Start: 05-09-2027 Screening for malign ant neoplasm of cervix [facility] Start: 05-27-2025 End: 11-25-2025 US Pelvis US Pelvis w/ TV Imaging Routine Pelvic pain in female Abdominal bloating History of ovarian cyst Expected: 05/27/2025, Expires: 11/25/2025 [facility] Work Phone: Comment on above: Expected: 05/27/2025 , Expires: 11/25/2025 Start: 05-14-2025 End: 05-14-2025 Patient encounter procedure 05/14/2025 11:00 AM EDT Office Visit [facility] [address] [place] [id number] Hilario Hernández, DO [address] [place], [place] [id number] [facility] Start: 04-08-2025 Influenza vaccination Influenza Vacc ine (#1) [facility] Start: 2024 Screening for malign ant neoplasm of cervix HPV/Cotest [facility] Start: 05-09-2024 End: 05-09-2024 Patient encounter procedure 05/09/2024 11:00 AM EDT Office Visit [facility] [address] [place] [id number] Hilario Hernández, DO [address] [place], [place] [id number] Arrived [facility] Comment on above: Arrived Start: 04-08-2024 Influenza vaccination Influenza Vacc ine (#1) [facility] Cytology Cervical or vaginal smear or scraping study Pap Smear Pathology and Cytology Routine Well woman exam with routine gynecological exam Ordered: 05/09/2024 [facility] Work Phone: Comment on above: Ordered: 05/09/2024 Cytology Cervical or vaginal smear or scraping study Pap Smear Pathology and Cytology Routine Well woman exam with routine gynecological exam Ordered: 05/27/2025 [facility] Work Phone: Comment on above: Ordered: 05/27/2025 Human papilloma viru s DNA [Presence] in Unspecified specimen by Probe with amplification HPV DNA probe, amplified Microbiology Routine Well woman exam with routine gynecological exam Ordered: 05/27/2025 [facility] Comment on above: Ordered: 05/27/2025 Immunizations Immunization Date Immunization Notes Care Provider Fa cility 08-20-2020 influenza virus vacc ine, unspecified formulation Hilario Hernández DO Work Phone: [facility] Payers Date Payer Category Payer Self-pay 2020 Medicaid [facility] MEDIC A[facility] [employer] [place] [id number] 2020-Present [address] [place] [address] [id number] 2020 Private Health Insurance [facility] [id number] 2020 Medicaid [id number] 1995 Unknown [id number] 1994 Unknown [id number] 1994 Unknown [id number] 1994 Unknown [id number] 1959 Unknown [id number] Social History Date Type Detail Facility [facility] Start: 1995 Sex assigned at Not on file [facility] Gender identity Not on file [facility] are Start: 10-20-2022 Sex Female [facility] History of Present illness Narrative 05-27-2025 Shaneka Torres LPN - 05/27/2025 2:20 PM EDT Note Date & Type Note Facility 05-27-2025 History of Presen t illness Narrative Reason for Appointment: Patient ID: Shirley Khalil is a 29 y.o. female who presents for Gynecologic Exam Patient presents today for Annual Exam. and Consult appointment. MEDICATIONS Current Outpatient Medications Medication Instructions [place] Fe 08/27 1-20 MG-MCG tablet 1 tablet, Oral, Every morning ALLERGIES Allergies Allergen Reactions Fluoxetine Wt loss Amoxicillin Rash PROBLEMS Active Ambulatory Problems Diagnosis Date Noted No Active Ambulatory Problems Resolved Ambulatory Problems Diagnosis Date Noted No Resolved Ambulatory Problems No Additional Past Medical History HISTORY PAST MEDICAL HISTORY SOCIAL HISTORY No past medical history on file. Social History Tobacco Use Smoking status: Not on file Smokeless tobacco: Not on file Substance Use Topics Alcohol use: Not on file Drug use: Not on file FAMILY HISTORY No family history on file. SURGICAL HISTORY History reviewed. No pertinent surgical history. REVIEW OF SYSTEMS Review of Systems: Review of Systems Constitutional: Negative. HENT: Negative. Eyes: Negative. Respiratory: Negative. Cardiovascular: Negative. Gastrointestinal: Negative. Genitourinary: Negative. Musculoskeletal: Negative. Skin: Negative. Neurological: Negative. All other systems reviewed and are negative. Hematological: Negative. Endocrine: Negative. Allergic/Immunologic: Negative. OBJECTIVE Objective: Physical Exam Constitutional: Appearance: Normal appearance. She is well-developed. Genitourinary: Vulva normal. Breasts: Breasts are soft. Right: Normal. Left: Normal. Cardiovascular: Rate and Rhythm: Normal rate and regular rhythm. Pulmonary: Effort: Pulmonary effort is normal. Breath sounds: Normal breath sounds. Abdominal: General: Bowel sounds are normal. There is no distension. Palpations: Abdomen is soft. Tenderness: There is no abdominal tenderness. There is no guarding or rebound. Musculoskeletal: General: No swelling. Normal range of motion. Right lower leg: No edema. Left lower leg: No edema. Neurological: Mental Status: She is alert and oriented to person, place, and time. Skin: General: Skin is warm and dry. Psychiatric: Mood and Affect: Mood normal. Behavior: Behavior normal. Vitals and nursing note reviewed. Exam conducted with a information security specialist present. Vitals: Estimated body mass index is 25.89 kg/m as calculated from the following: Height as of this encounter: 5' 6 . Weight as of this encounter: 160 lb 6.4 oz. BP: 108/68 No LMP recorded. Assessment/Plan ICD-10-CM 1. Well woman exam with routine gynecological exam Z01.419 Pap Smear HPV DNA probe, amplified CANCELED: HPV DNA probe, amplified Annual Exam: Patient presents today for an annual exam. Patient states she is doing well and has no complaints. Pap was obtained without difficulty. Orders Placed This Encounter Procedures HPV DNA probe, amplified US Pelvis w/ TV Follow Up: Patient is to return in one year for annual unless needed otherwise. Documented by Shaneka Torres LPN on behalf of: Catherine Maurice PA-C documented in this encounter [facility] History of Present illness Narrative 05-09-2024 Anika Choi LPN - 05/09/2024 11:00 AM EDT Note Date & Type Note Facility 05-09-2024 History of Presen t illness Narrative Reason for Appointment: Patient ID: Shirley Khalil is a 28 y.o. female who presents for [facility] Women Visit Patient presents today for Annual Exam. MEDICATIONS Current Outpatient Medications Medication Instructions Orlando Fe 08/27 1-20 MG-MCG tablet 1 tablet, Oral, Daily RT ALLERGIES Allergies Allergen Reactions Fluoxetine Wt loss Amoxicillin Rash PROBLEMS Active Ambulatory Problems Diagnosis Date Noted No Active Ambulatory Problems Resolved Ambulatory Problems Diagnosis Date Noted No Resolved Ambulatory Problems No Additional Past Medical History HISTORY PAST MEDICAL HISTORY SOCIAL HISTORY History reviewed. No pertinent past medical history. Social History Tobacco Use Smoking status: Not on file Smokeless tobacco: Not on file Substance Use Topics Alcohol use: Not on file Drug use: Not on file FAMILY HISTORY No family history on file. SURGICAL HISTORY History reviewed. No pertinent surgical history. REVIEW OF SYSTEMS Review of Systems: Review of Systems Constitutional: Negative. HENT: Negative. Eyes: Negative. Respiratory: Negative. Cardiovascular: Negative. Gastrointestinal: Negative. Genitourinary: Negative. Musculoskeletal: Negative. Skin: Negative. Neurological: Negative. All other systems reviewed and are negative. Hematological: Negative. Endocrine: Negative. Allergic/Immunologic: Negative. OBJECTIVE Objective: Physical Exam Constitutional: Appearance: Normal appearance. She is well-developed. Genitourinary: Vulva normal. Breasts: Breasts are soft. Right: Normal. Left: Normal. Cardiovascular: Rate and Rhythm: Normal rate and regular rhythm. Pulmonary: Effort: Pulmonary effort is normal. Breath sounds: Normal breath sounds. Abdominal: General: Bowel sounds are normal. There is no distension. Palpations: Abdomen is soft. Tenderness: There is no abdominal tenderness. There is no guarding or rebound. Musculoskeletal: General: No swelling. Normal range of motion. Right lower leg: No edema. Left lower leg: No edema. Neurological: Mental Status: She is alert and oriented to person, place, and time. Skin: General: Skin is warm and dry. Psychiatric: Mood and Affect: Mood normal. Behavior: Behavior normal. Vitals and nursing note reviewed. Exam conducted with a information security specialist present. Vitals: Estimated body mass index is 23.89 kg/m as calculated from the following: Height as of this encounter: 5' 6 . Weight as of this encounter: 148 lb. BP: 122/78 Patient's last menstrual period was 03/21/2024. ASSESSMENT & PLAN ICD-10-CM 1. Well woman exam with routine gynecological exam Z01.419 Pap Smear Annual Exam: Patient presents today for an annual exam. Patient states she is doing well and has no complaints. Pap was obtained without difficulty. No orders of the defined types were placed in this encounter. Follow Up: Patient is to return in one year for annual unless needed otherwise. Documented by Anika Choi LPN on behalf of: Hilario Hernández DO documented in this encounter [facility] Evaluation note Note Date & Type Note Facility Evaluation note Diagnosis Well woman exam with routine gynecological exam Routine gynecological examination control counseling documented in this encounter [facility] Evaluation note Note Date & Type Note Facility Evaluation note Diagnosis Well woman exam with routine gynecological exam Routine gynecological examination Pelvic pain in female Unspecified symptom associated with female genital organs Abdominal bloating Flatulence, eructation, and gas pain History of ovarian cyst Personal history of other genital system and obstetric disorders documented in this encounter [facility] Summary Purpose Family History No Family History Records FoundNo Family History Records FoundNo Family History Records FoundNo Family History Records Found Advance Directives No Advanced Directives Records FoundNo Advanced Directives Records FoundNo Advanced Directives Records FoundNo Advanced Directives Records Found Additional Source Comments INFORMATION SOURCE (unrecogn ized section and content) DATE CREATED AUTHOR 10/29/2021 [facility] DATE CREATED AUTHOR AUTHOR'S ORGANIZ ATION 05/12/2022 [facility] DATE CREATED AUTHOR AUTHOR'S ORGANIZ ATION 05/11/2024 [facility] EPIC DATE CREATED AUTHOR AUTHOR'S ORGANIZ ATION 05/25/2025 [facility] Care Teams (unrecognized sec tion and content) Drafting Detailer Relationship Specialty Start Date End Date Savanna Arias MD [address] [place] [address] PCP - General Family Medicine 05/04/23 Drafting Detailer Relationship Specialty Start Date End Date Savanna Arias MD [address] [place] [address] PCP - General Family Medicine 05/04/23 Drafting Detailer Relationship Specialty Start Date End Date Savanna Arias MD [address] [place] [address] PCP - General Family Medicine 05/04/23 Reason for Visit (unrecogniz ed section and content) Reason Comments Well Women Visit Reason Comments Gynecologic Exam FOR RECORDS PERTAINING TO PATIENTS WHO ARE [...] BE BASED ON THE PRIMARY CLINICAL RECORDS. [facility] [employer] provides no warranty or guarantee of the accuracy or completeness of information in this document.
--- OUTSIDE RECORDS SUMMARY | 2025-05-27 20:17 | XMS_ITS | Patient Health Record ---
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 I provided her with the phone number to call, and advised if not able to get scheduled to call us for another office to be referred.Josh Michelle 11/08/2024 03:27:28 PM >2nd attempt to contact patient, No answer/ no voicemail Referral Priority Routine Medications Medication SIG (Take, Route, Frequency, Duration) Notes Start Date End Date Status [place] Fe 08/27 1-20 MG-MCG Oral; Duration: 28 Days Active Methylphenidate HCl ER (OSM) 36 MG Oral; Duration: 30 Days Acti ve DULoxetine HCl 60 MG TAKE 2 CAPSULES BY MOUTH ONCE DAILY Oral; Duration: 30 Days Active Social History Tobacco Use: Social History Observation Description Date Details (start date - stop date) Never Smoker NA - NA Sex Assigned At : Social History Observation Description Sex Assigned At Female Tobacco Control (Standard) Question Answer Notes Tobacco use: Nonsmoker Vital Signs Heart Rate 104 /min 02/27/2025 Height-cm 167.64 cm 02/27/2025 Blood pressure diastolic 81 mm Hg 02/27/2025 Weight-kg 68.04 kg 02/27/2025 Height 66 in 02/27/2025 Blood pressure systolic 122 mm Hg 02/27/2025 Weight 150 lbs 02/27/2025 BMI 24.21 kg/m2 02/27/2025 Encounters Encounter Location Date Provider Diagnosis [facility] [address], [place] [id number] 06/13/2024 May Deluna Irreversible pulpi tis K04.02 and Dental caries into dentine K02.62 [facility] [address] [place] [id number] 06/20/2024 Maydia Deluna Necrosis of pulp K 04.1 [facility] [address] [place] [id number] 11/07/2024 May Deluna Dental caries into dentine K02.62 [facility] [address] [place] [id number] 11/14/2024 May [place] Dental caries into dentine K02.62 [facility] [address] [place] [id number] 02/12/2025 Rashmi Morgan Encounter for dent al examination and cleaning with abnormal findings Z01.21 [facility] [address] [place] [id number] 02/20/2025 May Deluna Dental caries into dentine K02.62 [facility] [address], [place] [id number] 02/27/2025 May Deluna Dental caries into dentine K02.62 Assessments Encounter Date Diagnosis (ICD Code) Assessment Notes Treatment Notes Treatment Clinical Notes Section Notes 06/13/2024 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) 06/20/2024 Necrosis of pulp (ICD-10 - K04.1) 11/07/2024 Dental caries into dentine (ICD-10 - K02.62) 11/14/2024 Dental caries into dentine (ICD-10 - K02.62) 02/12/2025 Encounter for dental examination and cleaning with abnormal findings (ICD-10 - Z01.21) 02/20/2025 Dental caries into dentine (ICD-10 - K02.62) 02/27/2025 Dental caries into dentine (ICD-10 - K02.62) 06/13/2024 Dental caries into dentine (ICD-10 - K02.62) Plan Of Treatment Next Appt Details Provider Name:May Reyna roby, 06/12/2025 12:45:00 PM, [address] [place] [address], [phone], Provider Name:May Reyna roby, 07/29/2025 09:45:00 AM, [address] [place] [address], [phone], Provider Name:May Reyna roby, 09/05/2025 03:15:00 PM, [address] [place] [address], [phone], Insurance Providers Payer Name Payer Address Payer Phone Subscriber Number Group Number Insured Name Patient Relationship to Insured Coverage Start Date Coverage End Date DCares rce [facility] [address] [place] [address] [id number] Shirley Khalil Self - patient is the insured 2 [employer] after [employer] [address] [place], [place] [id number] Shirley Khalil Self - patient is the insured 2
--- OUTSIDE RECORDS SUMMARY | 2025-05-27 20:17 | XMS_ITS | Clinical Summary ---
Author Organization [facility] Address [address] [place] [address] Care Team Providers Care Manager Channel Name Role Phone Unavailable Primary Care Provider Unavailabl e Social History Tobacco Use Types Packs/Day Years Used Date Smoking Tobacco: Never Assessed [place] Safety & Environment Answer Date Rec orded Fear of Current or Ex-Partner Not on file Emotionally Abused Not on file 09/29/2023 Physically Abused Not on file 09/29/2023 Sexually Abused Not on file 09/29/2023 Physically or Sexually Abused Not on file Comments Unknown Sex and Gender Information Value Date Recorded Sex Assigned at Not on file Legal Sex Female 12:31 AM EDT Gender Identity Not on file Sexual Orientation Not on file Plan of Treatment Not on file
--- OUTSIDE RECORDS SUMMARY | 2025-05-27 20:17 | XMS_ITS | Clinical Summary ---
Author Organization [facility] Address [facility] [id number] [address] [place] [address] Care Team Providers Care Video Game Engineer Name Role Phone Wade Arias MD Primary Care Provider [phone] Allergies Active Allergy Reactions Criticality Noted Date Comments Amoxicillin Rash Low 04/27/2023 Fluoxetine Hcl 09/12/2012 Wt loss Medications busPIRone (BUSPAR) 30 mg tablet Take 30 mg by mouth in the morning and at bedtime. 04/06/2023 Active DULoxetine (CYMBALTA) 60 mg capsule Take 1 capsule (60 mg total) by mouth in the morning and 1 capsule (60 mg total) before bedtime. 04/06/2023 Active methylphenidate HCl (CONCERTA) 36 mg CR tablet Take 1 tablet (36 mg total) by mouth every morning. 04/12/2023 Active LEONARD FE 08/27, 28, 1 mg-20 mcg (21)/75 mg (7) per tablet Take 1 tablet by mouth in the morning. 04/18/2023 Active traZODone (DESYREL) 100 mg tablet Take 1 tablet (100 mg total) by mouth nightly. 04/06/2023 Active Active Problems No known active problems Family History Medical History Relation Name Comments Sleep apnea Father Relation Name Status Comments Father Social History Tobacco Use Types Packs/Day Years Used Date Smoking Tobacco: Never Smokeless Tobacco: Never Tobacco Cessation:Counseling Given: Not Answered Alcohol Use Standard Drinks/Week Comments Never 0 (1 standard drink = 0.6 oz pur e alcohol) Hunger Screening Answer Date Recorded Within the past 12 months we worried whether our food would run out before we got money to buy more. Never True 04/27/2023 Within the past 12 months th e food we bought just didn't last and we didn't have money to get more. Never True 04/27/2023 Comments Unknown Sex and Gender Information Value Date Recorded Sex Assigned at Not on file Legal Sex Female 10:39 AM EDT Gender Identity Not on file Sexual Orientation Not on file Last Filed Vital Signs Vital Sign Reading Time Taken Comments Blood Pressure 116/78 04/27/2023 2:32 PM EDT Pulse 110 04/27/2023 2:32 PM EDT Temperature - - Respiratory Rate - - Oxygen Saturation 96% 04/27/2023 2:32 PM EDT Inhaled Oxygen Concentration - - Weight 64.9 kg (143 lb) 06/20/2023 8:35 PM EST Height 167.6 cm (5' 6 ) 06/20/2023 8:35 PM EST Body Mass Index 23.08 06/20/2023 8:35 PM EST Plan of Treatment Health Maintenance Due Date Last Done Comments Depression Screening 2006 DTaP,Tdap and Td Vaccines (2 - Tdap) 09/17/201309/1999 Pap Smear 2015 Adult BMI Screening 06/20/2024 06/20/2023 Tobacco Screening 06/20/2024 06/20/2023 COVID-19 Vaccine (2024-2 6 season) 2025 03/27/2021, 02/25/2021 Influenza Vaccine 04/08/2025 08/20/2020, , 06/25/2009 Medical Devices Not on file Insurance [employer] Care Teams Video Game Engineer Relationship Specialty Start Date End Date Wade Arias MD PCP - General Family Medicine 04/25/23
== END 2025-05-27 20:13 | disposition home or self-care (01) ==
LOC: LAB 20:12
PROVIDERS: PCP Family Medicine; Visit Provider Obstetrics & Gynecology
DX: Z01.419 Encounter for gynecological examination (general) (routine) without abnormal findings (principal)
CPT/HCPCS: 87624; 88175